=== PATIENT | female | born 1935 | race Caucasian/White ===

== ENCOUNTER → 2018-05-20 11:23 | Outpatient (CLI) | payer MEDICARE, OTHER, SELFPAY ==
[2018-05-20 12:01] LABS: Add Manual Diff / Slide Review NO; Basophils Percent Auto 2.3 % (0-2); Eosinophils Percent Auto 3.4 % (2-4); Hemoglobin 12.5 g/dL (12.0-16.0); Lymphocytes Percent Auto 30.9 % (25-40); Mean Corpuscular HGB Conc 33.7 % (30-36); Mean Corpuscular Volume 88.8 fL (80-100); Monocytes Percent Auto 9.3 % (3-14); Neutrophils Absolute Auto 2700 /uL (3000-5900); Neutrophils Percent Auto 54.1 % (50-75); Platelet Count 159 X10^3/uL (150-400); Red Blood Cell Count 4.17 X10^6/uL (4.0-5.2); Red Cell Distribution Width 14.2 % (11.6-14.8)
[2018-05-20 12:09] LABS: Alanine Aminotransferase 23 IU/L (9-52); Albumin 3.8 g/dL (3.5-5.0); Albumin Globulin Ratio 1.2 (1.0-2.8); Alkaline Phosphatase 58 U/L (38-126); Aspartate Aminotransferase 25 IU/L (14-36); Bilirubin Total 0.4 mg/dL (0.2-1.3); Blood Urea Nitrogen 20 mg/dL (7-17); Calcium 9.8 mg/dL (8.4-10.2); Carbon Dioxide 34 mmol/L (22-32); Chloride 103 mmol/L (98-107); Estimated Glomerular Filt Rate > 60.0 mL/min (>60); Globulin 3.1 g/dL (1.7-4.1); Glucose 80 mg/dL (80-110); HEMOLYSIS < 15 (0-50); Potassium 4.4 mmol/L (3.4-5.1); Sodium 140 mmol/L (137-145); Total Protein 6.9 g/dL (6.3-8.2)
[2018-05-20 12:36] LABS: Digoxin 1.1 ng/mL (0.8-2.0)
[2018-05-20 12:40] LABS: Cancer Antigen 125 7 U/mL (0-35)
== END ==
PROVIDERS: Internal Medicine Cardiovascular Disease; Family Provider Specialist; PCP Family Medicine; Visit Provider Nurse Practitioner Gerontology
DX: C55 Malignant neoplasm of uterus, part unspecified (principal); I47.1 Supraventricular tachycardia
CPT/HCPCS: 36415; 80053; 80162; 85025; 86304

== ENCOUNTER 2018-11-07 14:02 | Emergency (ER) | payer MEDICARE, OTHER, SELFPAY ==
[2018-11-07 14:06] VITALS: BP 121/64; PULSE 50; RESP 20; TEMP 36.4; O2SAT 98
[2018-11-07 14:30] VITALS: BP 103/47; PULSE 49; RESP 16; O2SAT 100
--- NOTE | 2018-11-07 14:39 | DI.RAD.S_ITS ---
PROCEDURE: XR CHEST 1V INDICATIONS: chest pain TECHNIQUE: One view of the chest was acquired. COMPARISON: [facility], , CHEST 1 VIEW, 07/23/2016, 13:15. FINDINGS: Surgical changes and devices: None. Lungs and pleura: No pleural effusions or pneumothorax. Lungs are clear. Mediastinum: Mediastinal contours appear normal. Heart size is normal. Bones and chest wall: No suspicious bony lesions. Overlying soft tissues appear unremarkable. IMPRESSION: 1. No acute cardiopulmonary disease. Dictated by: Maxi Salomon M.D. on 11/07/2018 at 15:52 Approved by: Maxi Salomon M.D. on 11/07/2018 at 15:52
[2018-11-07 15:05] LABS: Add Manual Diff / Slide Review NO; Basophils Percent Auto 0.4 % (0-2); Eosinophils Percent Auto 0.1 % (2-4); Hematocrit 36.2 % (36-46); Hemoglobin 11.9 g/dL (12.0-16.0); Lymphocytes Percent Auto 8.7 % (25-40); Mean Corpuscular HGB Conc 32.9 % (30-36); Mean Corpuscular Hemoglobin 29.3 PG (26-34); Monocytes Percent Auto 5.8 % (3-14); Neutrophils Absolute Auto 13800 /uL (1500-7000); Platelet Count 144 X10^3/uL (150-400); Red Blood Cell Count 4.07 X10^6/uL (4.0-5.2); White Blood Cell Count 16.3 X10^3/uL (4.5-11.0)
[2018-11-07 15:12] LABS: Prothrombin Time 11.3 SECONDS (10.1-12.7)
[2018-11-07 15:14] LABS: PTT Partial Thromboplastin Tim 28 SECONDS (26.4-36.2)
[2018-11-07 15:16] LABS: Alanine Aminotransferase 24 IU/L (9-52); Albumin 3.9 g/dL (3.5-5.0); Albumin Globulin Ratio 1.2 (1.0-2.8); Alkaline Phosphatase 50 U/L (38-126); Aspartate Aminotransferase 25 IU/L (14-36); Bilirubin Total 0.7 mg/dL (0.2-1.3); Blood Urea Nitrogen 23 mg/dL (7-17); Calcium 9.7 mg/dL (8.4-10.2); Carbon Dioxide 29 mmol/L (22-32); Chloride 102 mmol/L (98-107); Creatine Kinase 34 U/L (30-135); Globulin 3.2 g/dL (1.7-4.1); Glucose 85 mg/dL (80-110); HEMOLYSIS < 15 (0-50); Lipase 34 U/L (23-300); Potassium 4.5 mmol/L (3.4-5.1); Sodium 139 mmol/L (137-145); Total Protein 7.1 g/dL (6.3-8.2)
--- NOTE | 2018-11-07 15:26 | ED.CHESTPAIN ---
HPI - Chest Pain General Chief Complaint: Chest Pain Stated Complaint: Periodic shoulder and chest pain Time Seen by Provider: 11/07/18 14:19 Source: patient and family Mode of arrival: ambulatory Limitations: no limitations History of Present Illness HPI narrative: Patient complains of right-sided chest pain radiating to her right shoulder and across her back on both sides in the middle of the night last night. She states that she took some aspirin, after which the back pain subsided, but she continued to have a focused area pain on her right superior anterior chest wall. Patient states she did not really noticed anything made it better or worse. She states the pain was about a 5/10, but ultimately, resolved on its own. Patient states she did try taking 1 of her 's nitroglycerin tablets, but this did not seem to affect the pain. She states she did take her GERD medicine, and this did seem to help. Patient denies any symptoms currently. She states that she has been having palpitations on and off, after her chemical process equipment operator, Dr. trever edgar, decided to cut her digoxin dose in half. Patient states that she has been on digoxin for 40 years and has controlled her tachycardic episodes and palpitations very well. However, she states that Dr. perera well as trying to face her off of digoxin, as it is ?an outdated medicine?. Patient states that she is going to see him in December, and discuss being put back on her previous dose of digoxin, she felt it was working quite well. Patient denies any nausea, shortness of breath, lightheadedness, or diaphoresis with her episode of chest pain. She states she has had her gallbladder removed. No abdominal symptoms. No fevers or cough recently. No other complaints this time. Related Data Home Medications Medication Instructions Recorded Confirmed digoxin [Lanoxin] 0.125 mg OR Q DAY #0 07/23/16 lactulose 10 gm PO Q DAY #0 10/15/16 levothyroxine [Synthroid] 112 mcg PO QAM #0 10/15/16 famotidine [Pepcid] 40 mg HS #0 07/02/17 vitamins A,C,W-ojst-ccfzot 1 PO QDAY #0 09/08/17 [PreserVision AREDS] aspirin [Aspir-81] 05/27/18 atenolol 25 mg PO DAILY 05/27/18 05/27/18 cholecalciferol (vitamin D3) 1,000 unit PO DAILY 05/27/18 05/27/18 [Vitamin D3] docusate calcium 240 mg PO DAILY 05/27/18 05/27/18 simvastatin [Zocor] 20 mg PO QPM 05/27/18 05/27/18 Review of Systems Review of Systems All systems reviewed & are unremarkable except as noted in HPI and below Constitutional Denies chills, Denies fever(s), Denies lethargy and Denies weakness Eyes Denies change in vision, Denies eye discharge, Denies irritation and Denies loss of vision ENT Ears, Nose, Mouth, and Throat: Denies change in voice, Denies neck pain and Denies sore throat Cardiovascular Reports chest pain, Denies irregular heart rhythm, Denies lightheadedness, Denies palpitations, Denies dyspnea, Denies dyspnea on exertion and Denies orthopnea Respiratory Denies cough, Denies dyspnea, Denies dyspnea on exertion and Denies wheezing Gastrointestinal Gastrointestinal: Denies abdominal pain, Denies change in bowel habits, Denies diarrhea, Denies nausea and Denies vomiting Genitourinary Denies hematuria, Denies flank pain, Denies urinary incontinence and Denies urinary urgency Musculoskeletal Reports back pain and Denies neck pain Integumentary/Breasts Denies pruritus, Denies erythema, Denies rash and Denies wounds Neurologic Denies confusion, Denies loss of vision and Denies weakness Psychiatric Denies anxiety, Denies confusion, Denies depression, Denies homicidal ideation and Denies suicidal ideation Endocrine Denies palpitations Hematologic/Lymphatic Denies easy bruising Allergic/Immunologic Denies wheezing PFSH Medical History Uterine carcinosarcoma (Acute) Bilateral inguinal hernia (BIH) (Acute) Incisional hernia (Acute) Anterior epistaxis (Acute) Atypical chest pain (Acute) 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) Surgical History Status post dilation and curettage Status post laparoscopic cholecystectomy History of repair of hiatal hernia Status post vaginal hysterectomy History of third molar tooth extraction Status post appendectomy Social History Smoking Status: Never smoker Exam Initial Vital Signs Initial Vital Signs: Vital Signs Temperature 97.6 F 11/07/18 14:06 Pulse Rate 50 L 11/07/18 14:06 Respiratory Rate 20 11/07/18 14:06 Blood Pressure 121/64 11/07/18 14:06 Pulse Oximetry 98 11/07/18 14:06 Const General: cooperative and well developed Nutritional Appearance: well nourished Orientation: alert, awake, oriented x3 and not confused [facility] Head: normocephalic and atraumatic Ears: external ears normal Nose: external nose normal and No nasal discharge Face and sinus: face symmetric and No dry mucous membranes Mouth: oral mucosae normal and moist mucous membranes Teeth and gingiva: dentition normal Eyes General: appearance normal, both eyes and all related structures Eyelids: eyelids normal Conjunctivae: conjunctivae normal Sclera: sclerae normal Pupils: PERRL EOM: EOM intact bilaterally Neck Neck: normal visual inspection, trachea midline, No lymphadenopathy, No midline deformity and No JVD Lymphatic: No lymphedema Chest Chest: normal inspection of the chest Resp Effort & Inspection: normal respiratory effort, able to speak in complete sentences, no respiratory distress and no use of accessory muscles Auscultation: clear to auscultation bilaterally, no rales, no rhonchi and no wheezes Cardio Rate: regular rate Rhythm: regular rhythm Heart Sounds: no click, no gallops, no murmurs and no rubs Pulses: normal peripheral pulses GI Inspection: non-distended Palpation: soft, no hepatosplenomegaly, No guarding, No pulsatile mass and No tender Auscultation: normal bowel sounds Back/Spine/Pelvis Back: No CVA tenderness Cervical Spine: cervical ROM normal and No pain with cervical ROM Thoracic/Lumbar Spine: thoracic and lumbar spine normal to inspection Skin General: no rashes or lesions noted, No jaundice and No petechiae Neuro General: alert, oriented x3, gait normal and no focal motor deficits Speech: speech normal Extrem General: full ROM, no clubbing, cyanosis or edema, no pedal edema and no calf tenderness Psych Appearance: well kempt Mental Status: mental status grossly normal Attitude: cooperative Thought Content: normal and suicidality Judgment: judgment good Course Course Narrative: Patient was worked up with labs, EKG, and chest x-ray, all of which were unremarkable. I did not find any evidence of a serious or emergent condition causing the patient's pain overnight. Patient was now completely asymptomatic. I have discussed with her that she should plan to follow up with her chemical process equipment operator, but if her symptoms worsen, she should try to get an earlier appointment with chemical process equipment operator in December. We have also discussed the indications for return to the emergency department. Orders Ordered: ED Orders 11/07/18 14:39 XR chest 1V Stat 11/07/18 14:45 Digoxin Routine Lipid Panel Routine 11/07/18 14:55 Complete Blood Count AUTO DIFF Stat Comprehensive Metabolic Panel Stat Lipase Stat Partial Thromboplastin Time Stat Prothrombin Time INR Stat Troponin & CK Cardiac Panel Stat Vital Signs - 8 hr 11/07/18 14:06 11/07/18 14:30 11/07/18 16:00 Temperature 97.6 F Pulse Rate 50 L 49 L 48 L Respiratory Rate 20 16 18 Blood Pressure 121/64 Blood Pressure [Right Arm] 103/47 L 109/44 L Pulse Oximetry 98 100 97 MDM - Chest Pain Medical Records Data Attestation: I reviewed the patient's medical records. Lab Data Attestation: I reviewed the patient's lab results. Result diagrams: 11/07/18 14:55 11/07/18 14:55 Lab Results 11/07/18 11/07/18 11/07/18 Range/Units 14:45 14:45 14:55 WBC 16.3 H (4.5-11.0) X10^3/uL RBC 4.07 (4.0-5.2) X10^6/uL Hgb 11.9 L (12.0-16.0) g/dL Hct 36.2 (36-46) % MCV 89.0 (80-100) fL MCH 29.3 (26-34) PG MCHC 32.9 (30-36) % RDW 14.0 (11.6-14.8) % Plt Count 144 L (150-400) X10^3/uL Neut % (Auto) 85.0 H (50-75) % Lymph % (Auto) 8.7 L (25-40) % Linn % (Auto) 5.8 (3-14) % Eos % (Auto) 0.1 L (2-4) % Baso % (Auto) 0.4 (0-2) % Neut # (Auto) 05587 H (0619-3341) /uL PT (10.1-12.7) SECONDS INR (0.9-1.3) APTT (26.4-36.2) SECONDS Sodium (137-145) mmol/L Potassium (3.4-5.1) mmol/L Chloride (98-107) mmol/L Carbon Dioxide (22-32) mmol/L BUN (7-17) mg/dL Creatinine (0.52-1.04) mg/dL Estimated GFR (>60) mL/min BUN/Creatinine Ratio (6-22) Glucose (80-110) mg/dL Calcium (8.4-10.2) mg/dL Total Bilirubin (0.2-1.3) mg/dL AST (14-36) IU/L ALT (9-52) IU/L Alkaline Phosphatase (38-126) U/L Total Creatine Kinase (30-135) U/L CK-MB (CK-2) CK-MB (CK-2) Rel Index Troponin I (0.01-0.034) ng/mL Total Protein (6.3-8.2) g/dL Albumin (3.5-5.0) g/dL Globulin (1.7-4.1) g/dL Albumin/Globulin Ratio (1.0-2.8) Triglycerides 69 (35-150) mg/dL Cholesterol 153 (140-199) mg/dL LDL Cholesterol, Calc 78 (<100) mg/dL HDL Cholesterol 61 H (40-60) mg/dL Lipase (23-300) U/L Digoxin < 0.4 L (0.8-2.0) ng/mL 11/07/18 11/07/18 Range/Units 14:55 14:55 WBC (4.5-11.0) X10^3/uL RBC (4.0-5.2) X10^6/uL Hgb (12.0-16.0) g/dL Hct (36-46) % MCV (80-100) fL MCH (26-34) PG MCHC (30-36) % RDW (11.6-14.8) % Plt Count (150-400) X10^3/uL Neut % (Auto) (50-75) % Lymph % (Auto) (25-40) % Linn % (Auto) (3-14) % Eos % (Auto) (2-4) % Baso % (Auto) (0-2) % Neut # (Auto) (7000-5772) /uL PT 11.3 (10.1-12.7) SECONDS INR 1.0 (0.9-1.3) APTT 28 (26.4-36.2) SECONDS Sodium 139 (137-145) mmol/L Potassium 4.5 (3.4-5.1) mmol/L Chloride 102 (98-107) mmol/L Carbon Dioxide 29 (22-32) mmol/L BUN 23 H (7-17) mg/dL Creatinine 1.00 (0.52-1.04) mg/dL Estimated GFR 53.0 L (>60) mL/min BUN/Creatinine Ratio 23.0 H (6-22) Glucose 85 (80-110) mg/dL Calcium 9.7 (8.4-10.2) mg/dL Total Bilirubin 0.7 (0.2-1.3) mg/dL AST 25 (14-36) IU/L ALT 24 (9-52) IU/L Alkaline Phosphatase 50 (38-126) U/L Total Creatine Kinase 34 (30-135) U/L CK-MB (CK-2) TNP CK-MB (CK-2) Rel Index TNP Troponin I < 0.012 (0.01-0.034) ng/mL Total Protein 7.1 (6.3-8.2) g/dL Albumin 3.9 (3.5-5.0) g/dL Globulin 3.2 (1.7-4.1) g/dL Albumin/Globulin Ratio 1.2 (1.0-2.8) Triglycerides (35-150) mg/dL Cholesterol (140-199) mg/dL LDL Cholesterol, Calc (<100) mg/dL HDL Cholesterol (40-60) mg/dL Lipase 34 (23-300) U/L Digoxin (0.8-2.0) ng/mL Imaging Data Chest x-ray: Attestation: I personally reviewed and interpreted this imaging study as follows: My impression: Negative Radiologist's impression: PROCEDURE: XR CHEST 1V INDICATIONS: chest pain TECHNIQUE: One view of the chest was acquired. COMPARISON: [facility], , CHEST 1 VIEW, 07/23/2016, 13:15. FINDINGS: Surgical changes and devices: None. Lungs and pleura: No pleural effusions or pneumothorax. Lungs are clear. Mediastinum: Mediastinal contours appear normal. Heart size is normal. Bones and chest wall: No suspicious bony lesions. Overlying soft tissues appear unremarkable. IMPRESSION: 1. No acute cardiopulmonary disease. Dictated by: Maxi Salomon M.D. on 11/07/2018 at 15:52 Approved by: Maxi Salomon M.D. on 11/07/2018 at 15:52 ECG Data Attestation: I personally reviewed and interpreted this ECG as follows: (See below) Interpretation: Twelve lead EKG performed November 07, 2018 at 2:10 p.m., as follows: Regular ventricular rhythm with a rate of 46 beats per minute MI interval 140 millisecond QRS duration 97 millisecond QTC interval [address] depression less than 1 mm in lead 2 and lead V6 In summary, sinus bradycardia; mild ST depression; no STEMI; abnormal EKG as interpreted by ED MD. Discharge Plan Departure Patient Disposition: Home Clinical Impression: Atypical chest pain Discharge Date/Time: 11/07/18 16:25 Interventions: ED Discharge Assessment Last Done: 11/07/18 16:26 Instructions: DI for Chest Pain Activity Restrictions/Additional Instructions: Your labs, x-ray, and EKG all look good--no evidence of an emergent cause of your symptoms. Prescriptions: No Action digoxin [Lanoxin] 125 MCG tablet 0.125 mg OR Q DAY Qty: 0 RF: 0 levothyroxine [Synthroid] 112 MCG tablet 112 mcg PO QAM Qty: 0 RF: 0 lactulose 10 GM/15 ML solution 10 gm PO Q DAY Qty: 0 RF: 0 famotidine [Pepcid] 40 MG tablet 40 mg HS Qty: 0 RF: 0 vitamins A,C,F-efwb-uwiric [PreserVision AREDS] 1 EACH capsule 1 PO QDAY Qty: 0 RF: 0 aspirin [Aspir-81] 81 mg Tablet,Delayed Release (Dr/Ec) RF: 0 atenolol 25 mg Tablet 25 mg PO DAILY RF: 0 simvastatin [Zocor] 20 mg Tablet 20 mg PO QPM RF: 0 cholecalciferol (vitamin D3) [Vitamin D3] 1,000 unit Capsule 1,000 unit PO DAILY RF: 0 docusate calcium 240 mg Capsule 240 mg PO DAILY RF: 0 Referrals: Jose C Pack MD [Primary Care Provider] - Darrick Madera MD [Physician] -
[2018-11-07 15:28] LABS: Troponin I < 0.012 ng/mL (0.01-0.034)
[2018-11-07 15:31] LABS: Cholesterol 153 mg/dL (140-199); HDL Cholesterol 61 mg/dL (40-60); LDL Cholesterol Calculated 78 mg/dL (<100); Triglycerides 69 mg/dL (35-150)
[2018-11-07 15:35] LABS: Digoxin < 0.4 ng/mL (0.8-2.0)
[2018-11-07 16:00] VITALS: BP 109/44; PULSE 48; RESP 18; O2SAT 97
--- NOTE | 2018-11-07 21:24 | ED_ITS ---
HPI - Chest Pain General Chief Complaint: Chest Pain Stated Complaint: Periodic shoulder and chest pain Time Seen by Provider: 11/07/18 14:19 Source: patient and family Mode of arrival: ambulatory Limitations: no limitations History of Present Illness HPI narrative: Patient complains of right-sided chest pain radiating to her right shoulder and across her back on both sides in the middle of the night last night. She states that she took some aspirin, after which the back pain subsided, but she continued to have a focused area pain on her right superior anterior chest wall. Patient states she did not really noticed anything made it better or worse. She states the pain was about a 5/10, but ultimately, resolved on its own. Patient states she did try taking 1 of her 's nitroglycerin tablets, but this did not seem to affect the pain. She states she did take her GERD medicine, and this did seem to help. Patient denies any symptoms currently. She states that she has been having palpitations on and off , after her shrimp peeler, Dr. trever edgar, decided to cut her digoxin dose in half. Patient states that she has been on digoxin for 40 years and has controlled her tachycardic episodes and palpitations very well. However, she states that Dr. perera well as trying to face her off of digoxin, as it is ?an outdated medicine?. Patient states that she is going to see him in December, and discuss being put back on her previous dose of digoxin, she felt it was working quite well. Patient denies any nausea, shortness of breath, lightheadedness, or diaphoresis with her episode of chest pain. She states she has had her gallbladder removed. No abdominal symptoms. No fevers or cough recently. No other complaints this time. Related Data Home Medications Medication Instructions Recorded Confirmed digoxin [Lanoxin] 0.125 mg OR Q DAY #0 07/23/16 lactulose 10 gm PO Q DAY #0 10/15/16 levothyroxine [Synthroid] 112 mcg PO QAM #0 10/15/16 famotidine [Pepcid] 40 mg HS #0 07/02/17 vitamins A,C,C-qtmy-jsrvef 1 PO QDAY #0 09/08/17 [PreserVision AREDS] aspirin [Aspir-81] 05/27/18 atenolol 25 mg PO DAILY 05/27/18 05/27/18 cholecalciferol (vitamin D3) 1,000 unit PO DAILY 05/27/18 05/27/18 [Vitamin D3] docusate calcium 240 mg PO DAILY 05/27/18 05/27/18 simvastatin [Zocor] 20 mg PO QPM 05/27/18 05/27/18 Review of Systems Review of Systems All systems reviewed & are unremarkable except as noted in HPI and below Constitutional Denies chills, Denies fever(s), Denies lethargy and Denies weakness Eyes Denies change in vision, Denies eye discharge, Denies irritation and Denies loss of vision ENT Ears, Nose, Mouth, and Throat: Denies change in voice, Denies neck pain and Denies sore throat Cardiovascular Reports chest pain, Denies irregular heart rhythm, Denies lightheadedness, Denies palpitations, Denies dyspnea, Denies dyspnea on exertion and Denies orthopnea Respiratory Denies cough, Denies dyspnea, Denies dyspnea on exertion and Denies wheezing Gastrointestinal Gastrointestinal: Denies abdominal pain, Denies change in bowel habits, Denies diarrhea, Denies nausea and Denies vomiting Genitourinary Denies hematuria, Denies flank pain, Denies urinary incontinence and Denies urinary urgency Musculoskeletal Reports back pain and Denies neck pain Integumentary/Breasts Denies pruritus, Denies erythema, Denies rash and Denies wounds Neurologic Denies confusion, Denies loss of vision and Denies weakness Psychiatric Denies anxiety, Denies confusion, Denies depression, Denies homicidal ideation and Denies suicidal ideation Endocrine Denies palpitations Hematologic/Lymphatic Denies easy bruising Allergic/Immunologic Denies wheezing PFSH Medical History Uterine carcinosarcoma (Acute) Bilateral inguinal hernia (BIH) (Acute) Incisional hernia (Acute) Anterior epistaxis (Acute) Atypical chest pain (Acute) 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) Surgical History Status post dilation and curettage Status post laparoscopic cholecystectomy History of repair of hiatal hernia Status post vaginal hysterectomy History of third molar tooth extraction Status post appendectomy Social History Smoking Status: Never smoker Exam Initial Vital Signs Initial Vital Signs: Vital Signs Temperature 97.6 F 11/07/18 14:06 Pulse Rate 50 L 11/07/18 14:06 Respiratory Rate 20 11/07/18 14:06 Blood Pressure 121/64 11/07/18 14:06 Pulse Oximetry 98 11/07/18 14:06 Const General: cooperative and well developed Nutritional Appearance: well nourished Orientation: alert, awake, oriented x3 and not confused [facility] Head: normocephalic and atraumatic Ears: external ears normal Nose: external nose normal and No nasal discharge Face and sinus: face symmetric and No dry mucous membranes Mouth: oral mucosae normal and moist mucous membranes Teeth and gingiva: dentition normal Eyes General: appearance normal, both eyes and all related structures Eyelids: eyelids normal Conjunctivae: conjunctivae normal Sclera: sclerae normal Pupils: PERRL EOM: EOM intact bilaterally Neck Neck: normal visual inspection, trachea midline, No lymphadenopathy, No midline deformity and No JVD Lymphatic: No lymphedema Chest Chest: normal inspection of the chest Resp Effort & Inspection: normal respiratory effort, able to speak in complete sentences, no respiratory distress and no use of accessory muscles Auscultation: clear to auscultation bilaterally, no rales, no rhonchi and no wheezes Cardio Rate: regular rate Rhythm: regular rhythm Heart Sounds: no click, no gallops, no murmurs and no rubs Pulses: normal peripheral pulses GI Inspection: non-distended Palpation: soft, no hepatosplenomegaly, No guarding, No pulsatile mass and No tender Auscultation: normal bowel sounds Back/Spine/Pelvis Back: No CVA tenderness Cervical Spine: cervical ROM normal and No pain with cervical ROM Thoracic/Lumbar Spine: thoracic and lumbar spine normal to inspection Skin General: no rashes or lesions noted, No jaundice and No petechiae Neuro General: alert, oriented x3, gait normal and no focal motor deficits Speech: speech normal Extrem General: full ROM, no clubbing, cyanosis or edema, no pedal edema and no calf tenderness Psych Appearance: well kempt Mental Status: mental status grossly normal Attitude: cooperative Thought Content: normal and suicidality Judgment: judgment good Course Course Narrative: Patient was worked up with labs, EKG, and chest x-ray, all of which were unremarkable. I did not find any evidence of a serious or emergent condition causing the patient's pain overnight. Patient was now completely asymptomatic. I have discussed with her that she should plan to follow up with her shrimp peeler, but if her symptoms worsen, she should try to get an earlier appointment with shrimp peeler in December. We have also discussed the indications for return to the emergency department. Orders Ordered: ED Orders 11/07/18 14:39 XR chest 1V Stat 11/07/18 14:45 Digoxin Routine Lipid Panel Routine 11/07/18 14:55 Complete Blood Count AUTO DIFF Stat Comprehensive Metabolic Panel Stat Lipase Stat Partial Thromboplastin Time Stat Prothrombin Time INR Stat Troponin & CK Cardiac Panel Stat Vital Signs - 8 hr 11/07/18 14:06 11/07/18 14:30 11/07/18 16:00 Temperature 97.6 F Pulse Rate 50 L 49 L 48 L Respiratory Rate 20 16 18 Blood Pressure 121/64 Blood Pressure [Right Arm] 103/47 L 109/44 L Pulse Oximetry 98 100 97 MDM - Chest Pain Medical Records Data Attestation: I reviewed the patient's medical records. Lab Data Attestation: I reviewed the patient's lab results. Result diagrams: 11/07/18 14:55 11/07/18 14:55 Lab Results 11/07/18 11/07/18 11/07/18 Range/Units 14:45 14:45 14:55 WBC 16.3 H (4.5-11.0) X10^3/uL RBC 4.07 (4.0-5.2) X10^6/uL Hgb 11.9 L (12.0-16.0) g/dL Hct 36.2 (36-46) % MCV 89.0 (80-100) fL MCH 29.3 (26-34) PG MCHC 32.9 (30-36) % RDW 14.0 (11.6-14.8) % Plt Count 144 L (150-400) X10^3/uL Neut % (Auto) 85.0 H (50-75) % Lymph % (Auto) 8.7 L (25-40) % Mcnairy % (Auto) 5.8 (3-14) % Eos % (Auto) 0.1 L (2-4) % Baso % (Auto) 0.4 (0-2) % Neut # (Auto) 62600 H (7468-9769) /uL PT (10.1-12.7) SECONDS INR (0.9-1.3) APTT (26.4-36.2) SECONDS Sodium (137-145) mmol/L Potassium (3.4-5.1) mmol/L Chloride (98-107) mmol/L Carbon Dioxide (22-32) mmol/L BUN (7-17) mg/dL Creatinine (0.52-1.04) mg/dL Estimated GFR (>60) mL/min BUN/Creatinine Ratio (6-22) Glucose (80-110) mg/dL Calcium (8.4-10.2) mg/dL Total Bilirubin (0.2-1.3) mg/dL AST (14-36) IU/L ALT (9-52) IU/L Alkaline Phosphatase (38-126) U/L Total Creatine Kinase (30-135) U/L CK-MB (CK-2) CK-MB (CK-2) Rel Index Troponin I (0.01-0.034) ng/mL Total Protein (6.3-8.2) g/dL Albumin (3.5-5.0) g/dL Globulin (1.7-4.1) g/dL Albumin/Globulin Ratio (1.0-2.8) Triglycerides 69 (35-150) mg/dL Cholesterol 153 (140-199) mg/dL LDL Cholesterol, Calc 78 (<100) mg/dL HDL Cholesterol 61 H (40-60) mg/dL Lipase (23-300) U/L Digoxin < 0.4 L (0.8-2.0) ng/mL 11/07/18 11/07/18 Range/Units 14:55 14:55 WBC (4.5-11.0) X10^3/uL RBC (4.0-5.2) X10^6/uL Hgb (12.0-16.0) g/dL Hct (36-46) % MCV (80-100) fL MCH (26-34) PG MCHC (30-36) % RDW (11.6-14.8) % Plt Count (150-400) X10^3/uL Neut % (Auto) (50-75) % Lymph % (Auto) (25-40) % Mcnairy % (Auto) (3-14) % Eos % (Auto) (2-4) % Baso % (Auto) (0-2) % Neut # (Auto) (1525-4787) /uL PT 11.3 (10.1-12.7) SECONDS INR 1.0 (0.9-1.3) APTT 28 (26.4-36.2) SECONDS Sodium 139 (137-145) mmol/L Potassium 4.5 (3.4-5.1) mmol/L Chloride 102 (98-107) mmol/L Carbon Dioxide 29 (22-32) mmol/L BUN 23 H (7-17) mg/dL Creatinine 1.00 (0.52-1.04) mg/dL Estimated GFR 53.0 L (>60) mL/min BUN/Creatinine Ratio 23.0 H (6-22) Glucose 85 (80-110) mg/dL Calcium 9.7 (8.4-10.2) mg/dL Total Bilirubin 0.7 (0.2-1.3) mg/dL AST 25 (14-36) IU/L ALT 24 (9-52) IU/L Alkaline Phosphatase 50 (38-126) U/L Total Creatine Kinase 34 (30-135) U/L CK-MB (CK-2) TNP CK-MB (CK-2) Rel Index TNP Troponin I < 0.012 (0.01-0.034) ng/mL Total Protein 7.1 (6.3-8.2) g/dL Albumin 3.9 (3.5-5.0) g/dL Globulin 3.2 (1.7-4.1) g/dL Albumin/Globulin Ratio 1.2 (1.0-2.8) Triglycerides (35-150) mg/dL Cholesterol (140-199) mg/dL LDL Cholesterol, Calc (<100) mg/dL HDL Cholesterol (40-60) mg/dL Lipase 34 (23-300) U/L Digoxin (0.8-2.0) ng/mL Imaging Data Chest x-ray: Attestation: I personally reviewed and interpreted this imaging study as follows: My impression: Negative Radiologist's impression: PROCEDURE: XR CHEST 1V INDICATIONS: chest pain TECHNIQUE: One view of the chest was acquired. COMPARISON: [facility], , CHEST 1 VIEW, 07/23/2016, 13:15. FINDINGS: Surgical changes and devices: None. Lungs and pleura: No pleural effusions or pneumothorax. Lungs are clear. Mediastinum: Mediastinal contours appear normal. Heart size is normal. Bones and chest wall: No suspicious bony lesions. Overlying soft tissues appear unremarkable. IMPRESSION: 1. No acute cardiopulmonary disease. Dictated by: Maxi Salomon M.D. on 11/07/2018 at 15:52 Approved by: Maxi Salomon M.D. on 11/07/2018 at 15:52 ECG Data Attestation: I personally reviewed and interpreted this ECG as follows: (See below) Interpretation: Twelve lead EKG performed November 07, 2018 at 2:10 p.m., as follows: Regular ventricular rhythm with a rate of 46 beats per minute WI interval 140 millisecond QRS duration 97 millisecond QTC interval [address] depression less than 1 mm in lead 2 and lead V6 In summary, sinus bradycardia; mild ST depression; no STEMI; abnormal EKG as interpreted by ED MD. Discharge Plan Departure Patient Disposition: Home Clinical Impression: Atypical chest pain Discharge Date/Time: 11/07/18 16:25 Interventions: ED Discharge Assessment Last Done: 11/07/18 16:26 Instructions: DI for Chest Pain Activity Restrictions/Additional Instructions: Your labs, x-ray, and EKG all look good--no evidence of an emergent cause of your symptoms. Prescriptions: No Action digoxin [Lanoxin] 125 MCG tablet 0.125 mg OR Q DAY Qty: 0 RF: 0 levothyroxine [Synthroid] 112 MCG tablet 112 mcg PO QAM Qty: 0 RF: 0 lactulose 10 GM/15 ML solution 10 gm PO Q DAY Qty: 0 RF: 0 famotidine [Pepcid] 40 MG tablet 40 mg HS Qty: 0 RF: 0 vitamins A,C,K-wvko-ybkptm [PreserVision AREDS] 1 EACH capsule 1 PO QDAY Qty: 0 RF: 0 aspirin [Aspir-81] 81 mg Tablet,Delayed Release (Dr/Ec) RF: 0 atenolol 25 mg Tablet 25 mg PO DAILY RF: 0 simvastatin [Zocor] 20 mg Tablet 20 mg PO QPM RF: 0 cholecalciferol (vitamin D3) [Vitamin D3] 1,000 unit Capsule 1,000 unit PO DAILY RF: 0 docusate calcium 240 mg Capsule 240 mg PO DAILY RF: 0 Referrals: Jose C Pack MD [Primary Care Provider] - Darrick Madera MD [Physician] -
== END 2018-11-07 16:25 | disposition home or self-care (01) ==
PROVIDERS: Internal Medicine Cardiovascular Disease; Emergency Provider Emergency Medicine; PCP Family Medicine
DX: R07.89 Other chest pain (principal)
CPT/HCPCS: 36415; 71045; 80053; 80061; 80162; 82550; 83690; 84484; 85025; 85610; 85730; 93005; 99283; 99285

== ENCOUNTER → 2018-11-10 12:00 | Outpatient (CLI) | payer MEDICARE, OTHER, SELFPAY ==
--- NOTE | 2018-11-10 11:56 | DI.CT.S_ITS ---
PROCEDURE: CT ABDOMEN PELVIS W CON INDICATIONS: surveillance TECHNIQUE: After the administration of oral and intravenous contrast, 5 mm thick sections acquired from the diaphragms to the symphysis. 5 mm thick coronal and sagittal reformats were performed. For radiation dose reduction, the following was used: automated exposure control, adjustment of mA and/or kV according to patient size. COMPARISON: [facility], CT, ABDOMEN/PELVIS WITH CONTRAST, 09/03/2017, 11:38. FINDINGS: Image quality: Excellent. ABDOMEN: Lung bases: Fat-containing right posterior hemidiaphragmatic hernia is present, as before. Lung bases are clear. Heart size is normal. Solid organs: Liver is normal in size and enhancement. Gallbladder is surgically absent. Biliary system is non-dilated. No change in pancreatic ductal dilatation and cysts within the pancreatic tail. Pancreas otherwise enhances normally. Spleen is normal in size and enhancement. No adrenal nodules. Kidneys are normal in size and enhancement, without hydronephrosis. Peritoneum and bowel: Stomach, small bowel, and colon loops are normal in caliber and wall thickness. No free fluid or air. Appendix not seen. No evidence of appendicitis. Nodes and vessels: No retroperitoneal or mesenteric adenopathy. Aorta and inferior vena cava are normal in caliber. Miscellaneous: No ventral hernias. Mild scarring within the anterior abdominal wall. PELVIS: Genitourinary: Bladder wall thickness is normal. Status post hysterectomy. Miscellaneous: No inguinal hernias or adenopathy. Bones: No suspicious bony lesions. Moderate leftward curvature of the lumbar spine is present. No vertebral body compression fractures. IMPRESSION: 1. No evidence of malignancy. 2. No change in pancreatic ductal dilatation and pancreatic tail cysts. Otherwise Dictated by: Marito Cowart M.D. on 11/10/2018 at 13:49 Approved by: Marito Cowart M.D. on 11/10/2018 at 13:52
[2018-11-10 11:57] LABS: Add Manual Diff / Slide Review NO; Basophils Percent Auto 0.8 % (0-2); Eosinophils Percent Auto 3.7 % (2-4); Hematocrit 39.6 % (36-46); Hemoglobin 13.2 g/dL (12.0-16.0); Lymphocytes Percent Auto 31.6 % (25-40); Mean Corpuscular HGB Conc 33.2 % (30-36); Mean Corpuscular Hemoglobin 29.5 PG (26-34); Mean Corpuscular Volume 88.7 fL (80-100); Monocytes Percent Auto 6.1 % (3-14); Neutrophils Absolute Auto 3300 /uL (1500-7000); Neutrophils Percent Auto 57.8 % (50-75); Platelet Count 159 X10^3/uL (150-400); Red Blood Cell Count 4.46 X10^6/uL (4.0-5.2); Red Cell Distribution Width 13.9 % (11.6-14.8); White Blood Cell Count 5.8 X10^3/uL (4.5-11.0)
[2018-11-10 12:12] LABS: Alanine Aminotransferase 27 IU/L (9-52); Albumin 4.1 g/dL (3.5-5.0); Albumin Globulin Ratio 1.2 (1.0-2.8); Alkaline Phosphatase 54 U/L (38-126); Aspartate Aminotransferase 30 IU/L (14-36); BUN Creatinine Ratio 21.3 (6-22); Bilirubin Total 0.4 mg/dL (0.2-1.3); Blood Urea Nitrogen 17 mg/dL (7-17); Calcium 9.4 mg/dL (8.4-10.2); Carbon Dioxide 30 mmol/L (22-32); Chloride 102 mmol/L (98-107); Estimated Glomerular Filt Rate > 60.0 mL/min (>60); Globulin 3.4 g/dL (1.7-4.1); Glucose 80 mg/dL (80-110); HEMOLYSIS < 15 (0-50); Sodium 140 mmol/L (137-145); Total Protein 7.5 g/dL (6.3-8.2)
[2018-11-10 12:43] LABS: Cancer Antigen 125 7 U/mL (0-35)
--- NOTE | 2018-11-11 15:02 | PC.NURSE ---
lab stable, provider visit 11/15
== END ==
PROVIDERS: Family Provider Nurse Practitioner Gerontology; PCP Family Medicine; Visit Provider Nurse Practitioner Gerontology
DX: Z08 Encounter for follow-up examination after completed treatment for malignant neoplasm (principal); Z85.42 Personal history of malignant neoplasm of other parts of uterus; K86.2 Cyst of pancreas; K86.89 Other specified diseases of pancreas; Z90.49 Acquired absence of other specified parts of digestive tract
CPT/HCPCS: 36415; 74177; 80053; 85025; 86304; Q9967

== ENCOUNTER → 2019-01-04 09:58 | Outpatient (CLI) | payer MEDICARE, OTHER, SELFPAY ==
--- NOTE | 2019-01-04 | DI.MG.S_ITS ---
BILATERAL DIGITAL SCREENING MAMMOGRAM 3D/2D WITH CAD: 01/04/2019 CLINICAL: Routine screening. Family history of breast cancer. Comparison is made to exams dated: 12/08/2017 mammogram, 11/18/2016 mammogram, and 11/14/2015 mammogram - [facility]. There are scattered fibroglandular elements in both breasts. Current study was also evaluated with a Computer Aided Detection (CAD) system. No significant masses, calcifications, or other findings are seen in either breast. There has been no significant interval change. IMPRESSION: NEGATIVE There is no mammographic evidence of malignancy. A 1 year screening mammogram is recommended. This exam was interpreted at Station ID: [id number]. NOTE: For mammograms, a report in lay terms will be sent to the patient. Approximately 15% of breast malignancies will not be visualized mammographically. In the management of a palpable breast mass, a negative mammogram must not discourage biopsy of a clinically suspicious lesion. Electronically Signed By: Yan mercedes/portia:01/04/2019 17:45:50 copy to: ADRI WHITE copy to: YELITZA DELGADO letter sent: Normal Exam ACR BI-RADS Category 1: Negative 3341F
== END ==
PROVIDERS: Family Provider Nurse Practitioner Gerontology; PCP Family Medicine; Visit Provider Family Medicine
DX: Z12.31 Encounter for screening mammogram for malignant neoplasm of breast (principal); Z80.3 Family history of malignant neoplasm of breast
CPT/HCPCS: 77063; 77067

== ENCOUNTER → 2019-05-09 12:02 | Outpatient (CLI) | payer MEDICARE, OTHER, SELFPAY ==
--- NOTE | 2019-05-09 | DI.US.S_ITS ---
PROCEDURE: US PERIPH VENOUS LOW EXTREM LT INDICATIONS: LEFT LEG PAIN TECHNIQUE: Real-time imaging, as well as color and pulse Doppler interrogation, were performed of the lower extremity deep veins from the inguinal ligament to the popliteal fossa. COMPARISON: None. FINDINGS: The common femoral, femoral and popliteal veins are normally compressible, and free of intraluminal thrombus. Color and pulse Doppler demonstrate normal phasic intraluminal flow. There is normal augmentation response to distal compression maneuver. IMPRESSION: Negative for deep venous thrombosis. Dictated by: Duane Clark M.D. on 05/09/2019 at 12:13 Approved by: Duane Clark M.D. on 05/09/2019 at 12:13
== END ==
PROVIDERS: Family Provider Nurse Practitioner Gerontology; PCP Student in an Organized Health Care Education/Training Program; Visit Provider Student in an Organized Health Care Education/Training Program
DX: M79.605 Pain in left leg (principal)
CPT/HCPCS: 93971

== ENCOUNTER → 2019-11-21 10:08 | Outpatient (CLI) | payer MEDICARE, OTHER, SELFPAY ==
[2019-11-21 10:42] LABS: Add Manual Diff / Slide Review NO; Basophils Absolute Auto 100 /uL (0-100); Basophils Percent Auto 1.1 % (0-2); Eosinophils Absolute Auto 200 /uL (0-450); Eosinophils Percent Auto 4.1 % (2-4); Hematocrit 38.9 % (36-46); Hemoglobin 13.1 g/dL (12.0-16.0); Lymphocytes Absolute Auto 2000 /uL (1100-4500); Lymphocytes Percent Auto 33.5 % (25-40); Mean Corpuscular HGB Conc 33.6 % (30-36); Mean Corpuscular Hemoglobin 30.1 PG (26-34); Mean Corpuscular Volume 89.5 fL (80-100); Monocytes Absolute Auto 500 /uL (0-900); Neutrophils Absolute Auto 3100 /uL (1500-7000); Neutrophils Percent Auto 52.3 % (50-75); Platelet Count 149 X10^3/uL (150-400); Red Blood Cell Count 4.35 X10^6/uL (4.0-5.2); Red Cell Distribution Width 13.7 % (11.6-14.8); White Blood Cell Count 5.9 X10^3/uL (4.5-11.0)
[2019-11-21 10:57] LABS: Alanine Aminotransferase 14 IU/L (<35); Albumin Globulin Ratio 1.2 (1.0-2.8); Alkaline Phosphatase 60 U/L (38-126); Aspartate Aminotransferase 30 IU/L (14-36); BUN Creatinine Ratio 26.3 (6-22); Bilirubin Total 0.5 mg/dL (0.2-1.3); Blood Urea Nitrogen 21 mg/dL (7-17); Carbon Dioxide 31 mmol/L (22-32); Chloride 105 mmol/L (98-107); Estimated Glomerular Filt Rate > 60.0 mL/min (>60); Globulin 3.3 g/dL (1.7-4.1); Glucose 80 mg/dL (80-110); HEMOLYSIS < 15 (0-50); Potassium 4.3 mmol/L (3.4-5.1); Sodium 140 mmol/L (137-145); Total Protein 7.3 g/dL (6.3-8.2)
[2019-11-21 11:26] LABS: Cancer Antigen 125 < 6 U/mL (0-35)
== END ==
PROVIDERS: PCP Student in an Organized Health Care Education/Training Program; Visit Provider Internal Medicine Hematology & Oncology
DX: C55 Malignant neoplasm of uterus, part unspecified (principal)
CPT/HCPCS: 36415; 80053; 85025; 86304

== ENCOUNTER → 2020-01-06 10:49 | Outpatient (CLI) | payer MEDICARE, OTHER, SELFPAY ==
--- NOTE | 2020-01-06 | DI.MG.S_ITS ---
BILATERAL DIGITAL SCREENING MAMMOGRAM 3D/2D WITH CAD: 01/06/2020 CLINICAL: Routine screening. Family history of breast cancer. Comparison is made to exams dated: 01/04/2019 mammogram, 12/08/2017 mammogram, and 11/18/2016 mammogram - [facility]. There are scattered fibroglandular elements in both breasts. Current study was also evaluated with a Computer Aided Detection (CAD) system. No significant masses, calcifications, or other findings are seen in either breast. There has been no significant interval change. IMPRESSION: NEGATIVE There is no mammographic evidence of malignancy. A 1 year screening mammogram is recommended. This exam was interpreted at Station ID: [id number]. NOTE: For mammograms, a report in lay terms will be sent to the patient. Approximately 15% of breast malignancies will not be visualized mammographically. In the management of a palpable breast mass, a negative mammogram must not discourage biopsy of a clinically suspicious lesion. Electronically Signed By: Josefina vázquez/portia:01/06/2020 12:51:02 letter sent: Normal Exam ACR BI-RADS Category 1: Negative 3341F
== END ==
PROVIDERS: PCP Nurse Practitioner; Referring Provider Nurse Practitioner; Visit Provider Nurse Practitioner
DX: Z12.31 Encounter for screening mammogram for malignant neoplasm of breast (principal); Z80.3 Family history of malignant neoplasm of breast
CPT/HCPCS: 77063; 77067

== ENCOUNTER → 2020-02-17 09:56 | Outpatient (CLI) | payer MEDICARE, OTHER, SELFPAY ==
[2020-02-17 12:51] LABS: Digoxin 0.9 ng/mL (0.8-2.0)
== END ==
PROVIDERS: PCP Nurse Practitioner; Referring Provider Internal Medicine Cardiovascular Disease; Visit Provider Internal Medicine Cardiovascular Disease
DX: I47.1 Supraventricular tachycardia (principal)
CPT/HCPCS: 36415; 80162

== ENCOUNTER → 2020-04-04 11:54 | Outpatient (CLI) | payer MEDICARE, OTHER, SELFPAY ==
[2020-04-04 13:47] LABS: Free T3, Triiodothyronine Free 3.02 pg/mL (2.77-5.27)
[2020-04-04 13:48] LABS: Free T4, Direct Thyroxine 1.52 ng/dL (0.78-2.19)
[2020-04-04 14:01] LABS: Thyroid Stimulating Hormone < 0.02 uIU/mL (0.47-4.68)
== END ==
PROVIDERS: PCP Nurse Practitioner; Referring Provider Nurse Practitioner; Visit Provider Nurse Practitioner
DX: E03.9 Hypothyroidism, unspecified (principal); R53.83 Other fatigue; Z79.899 Other long term (current) drug therapy
CPT/HCPCS: 36415; 84439; 84443; 84481

== ENCOUNTER → 2020-06-21 11:36 | Outpatient (CLI) | payer MEDICARE, OTHER, SELFPAY ==
[2020-06-21 13:27] LABS: Digoxin 0.7 ng/mL (0.8-2.0)
== END ==
PROVIDERS: PCP Nurse Practitioner; Referring Provider Internal Medicine Cardiovascular Disease; Visit Provider Internal Medicine Cardiovascular Disease
DX: I47.1 Supraventricular tachycardia (principal)
CPT/HCPCS: 36415; 80162

== ENCOUNTER → 2020-09-26 09:29 | Outpatient (CLI) | payer MEDICARE, OTHER, SELFPAY ==
[2020-09-26 11:28] LABS: BUN Creatinine Ratio 23.9 (6-22); Blood Urea Nitrogen 21 mg/dL (7-17); Carbon Dioxide 31 mmol/L (22-32); Chloride 105 mmol/L (98-107); Estimated Glomerular Filt Rate > 60.0 mL/min (>60); Glucose 84 mg/dL (80-110); HEMOLYSIS < 15 (0-50); Potassium 4.1 mmol/L (3.4-5.1); Sodium 137 mmol/L (137-145)
[2020-09-26 11:30] LABS: Calcium 9.6 mg/dL (8.4-10.2)
[2020-09-26 11:34] LABS: Digoxin < 0.4 ng/mL (0.8-2.0)
[2020-09-26 11:58] LABS: Thyroid Stimulating Hormone 0.039 uIU/mL (0.47-4.68)
== END ==
PROVIDERS: PCP Nurse Practitioner; Referring Provider Internal Medicine Cardiovascular Disease; Visit Provider Internal Medicine Cardiovascular Disease
DX: I47.1 Supraventricular tachycardia (principal); E03.9 Hypothyroidism, unspecified; I10 Essential (primary) hypertension; R53.83 Other fatigue; Z79.899 Other long term (current) drug therapy
CPT/HCPCS: 36415; 80048; 80162; 84443

== ENCOUNTER → 2021-01-09 11:39 | Outpatient (CLI) | payer MEDICARE, OTHER, SELFPAY ==
--- NOTE | 2021-01-09 11:40 | DI.MG.S_ITS ---
BILATERAL DIGITAL SCREENING MAMMOGRAM 3D/2D WITH CAD: 01/09/2021 CLINICAL: Routine screening. Family history of breast cancer. Comparison is made to exams dated: 01/06/2020 mammogram, 01/04/2019 mammogram, and 12/08/2017 mammogram - [facility]. There are scattered fibroglandular elements in both breasts. Current study was also evaluated with a Computer Aided Detection (CAD) system. No significant masses, calcifications, or other findings are seen in either breast. There has been no significant interval change. IMPRESSION: NEGATIVE There is no mammographic evidence of malignancy. A 1 year screening mammogram is recommended. This exam was interpreted at Station ID: [id number]. NOTE: For mammograms, a report in lay terms will be sent to the patient. Approximately 15% of breast malignancies will not be visualized mammographically. In the management of a palpable breast mass, a negative mammogram must not discourage biopsy of a clinically suspicious lesion. Electronically Signed By: Tommie Mccarthy M.D., jr/portia:01/09/2021 12:58:05 copy to: JESUSITA DE SANTIAGO letter sent: Normal Exam ACR BI-RADS Category 1: Negative 3341F
== END ==
PROVIDERS: PCP Nurse Practitioner; Referring Provider Internal Medicine Hematology & Oncology; Visit Provider Internal Medicine Hematology & Oncology
DX: Z12.31 Encounter for screening mammogram for malignant neoplasm of breast (principal); Z80.3 Family history of malignant neoplasm of breast
CPT/HCPCS: 77063; 77067

== ENCOUNTER → 2021-03-26 10:04 | Outpatient (CLI) | payer MEDICARE, OTHER, SELFPAY ==
[2021-03-26 11:44] LABS: BUN Creatinine Ratio 19.1 (6-22); Blood Urea Nitrogen 18 mg/dL (7-17); Calcium 9.5 mg/dL (8.4-10.2); Carbon Dioxide 31 mmol/L (22-32); Chloride 103 mmol/L (98-107); Estimated Glomerular Filt Rate 56.6 mL/min (>60); Glucose 81 mg/dL (80-110); HEMOLYSIS < 15 (0-50); Potassium 3.8 mmol/L (3.4-5.1); Sodium 139 mmol/L (137-145)
[2021-03-26 11:57] LABS: Digoxin 0.6 ng/mL (0.8-2.0)
[2021-03-26 12:10] LABS: Thyroid Stimulating Hormone 2.29 uIU/mL (0.47-4.68)
== END ==
PROVIDERS: Internal Medicine Cardiovascular Disease; PCP Nurse Practitioner; Referring Provider Nurse Practitioner; Visit Provider Nurse Practitioner
DX: I47.1 Supraventricular tachycardia (principal); I10 Essential (primary) hypertension; E03.9 Hypothyroidism, unspecified; Z79.899 Other long term (current) drug therapy
CPT/HCPCS: 36415; 80048; 80162; 84443

== ENCOUNTER → 2021-05-01 09:08 | Outpatient (CLI) | payer MEDICARE, OTHER, SELFPAY ==
[2021-05-01 10:34] LABS: Alanine Aminotransferase 14 IU/L (<35); Albumin 3.9 g/dL (3.5-5.0); Albumin Globulin Ratio 1.3 (1.0-2.8); Alkaline Phosphatase 50 U/L (38-126); Aspartate Aminotransferase 36 IU/L (14-36); BUN Creatinine Ratio 21.2 (6-22); Bilirubin Total 0.5 mg/dL (0.2-1.3); Blood Urea Nitrogen 18 mg/dL (7-17); Calcium 9.9 mg/dL (8.4-10.2); Carbon Dioxide 29 mmol/L (22-32); Chloride 106 mmol/L (98-107); Cholesterol 190 mg/dL (140-199); Estimated Glomerular Filt Rate > 60.0 mL/min (>60); Globulin 3.1 g/dL (1.7-4.1); Glucose 101 mg/dL (80-110); HDL Cholesterol 67 mg/dL (40-60); HEMOLYSIS < 15 (0-50); LDL Cholesterol Calculated 104 mg/dL (<100); Sodium 138 mmol/L (137-145); Triglycerides 97 mg/dL (35-150)
[2021-05-01 10:52] LABS: Digoxin 0.6 ng/mL (0.8-2.0)
== END ==
PROVIDERS: PCP Nurse Practitioner; Referring Provider Internal Medicine Cardiovascular Disease; Visit Provider Internal Medicine Cardiovascular Disease
DX: I47.1 Supraventricular tachycardia (principal); Z79.899 Other long term (current) drug therapy
CPT/HCPCS: 36415; 80053; 80061; 80162

== ENCOUNTER 2021-07-03 15:48 | Emergency (ER) | payer MEDICARE, OTHER, SELFPAY ==
[2021-07-03 16:04] VITALS: BP 185/84; PULSE 51; RESP 18; TEMP 36.6; O2SAT 98
--- NOTE | 2021-07-03 16:10 | DI.CT.S_ITS ---
PROCEDURE: CT HEAD/BRAIN WO CON INDICATIONS: headache TECHNIQUE: Noncontrast 4.5 mm thick angled axial sections acquired from the foramen magnum to the vertex, with coronal and sagittal reformats. For radiation dose reduction, the following was used: automated exposure control, adjustment of mA and/or kV according to patient size. COMPARISON: None. FINDINGS: Image quality: Excellent. CSF spaces: Basal cisterns are patent. No extra-axial fluid collections. The ventricles are symmetric in size and shape. Brain: No intracranial bleeds or masses. There is cerebral volume loss for age, with resultant ventricular and sulcal prominence. There are periventricular and deep white matter chronic small vessel ischemic changes. There is intracranial internal carotid artery and vertebral artery atherosclerosis. Skull and face: Calvarium and visualized facial bones appear intact, without suspicious lesions. Sinuses: Visualized sinuses and mastoids are clear. IMPRESSION: No acute intracranial disease process. Dictated by: Sakshi Morataya MD, PhD on 07/03/2021 at 16:21 Approved by: Sakshi Morataya MD, PhD on 07/03/2021 at 16:23
[2021-07-03 18:54] VITALS: BP 176/74; PULSE 72; RESP 16; O2SAT 96
--- NOTE | 2021-07-03 19:19 | ED.HA ---
HPI - Headache General Chief Complaint: Headache Stated Complaint: pain in head not going away Time Seen by Provider: 07/03/21 18:40 Mode of arrival: Ambulatory History of Present Illness HPI Narrative: 86-year-old female nonsmoker with history of hypertension presents with her in the chief complaint of brief episodes of sharp and stabbing right-sided headache since yesterday. She denies any provocation or palliation. She denies associated symptoms such as blurred vision, trouble with speech nor numbness, tingling or weakness. She has no chest pain or shortness of breath. She denies any dietary or medication change. She states that she has a very brief episode of sharp pain in the right lower part of her head that lasts only a second or 2 and then goes away for a few minutes until it starts again. Related Data Home Medications Medication Instructions Recorded Confirmed aspirin 81 mg tablet,delayed 81 mg PO DAILY tab 04/04/20 07/10/20 release (Aspir-) sennosides 8.6 mg tablet (senna) See Rx Instructions PO BEDTIME tab 04/04/20 07/10/20 bisacodyl 5 mg tablet,delayed 5 mg PO BID tab 05/07/21 05/07/21 release calcium citrate 500mg/mag/zinc 2 tab PO .QD 05/07/21 docusate sodium 100 mg capsule 100 mg PO BID 05/07/21 05/07/21 (Dulcolax Stool Softener (docusate)) guaifenesin 600 mg tablet, 600 mg PO BID 05/07/21 05/07/21 extended release 12 hr (Mucinex) guaifenesin 600 mg tablet, 600 mg PO BID 05/07/21 05/07/21 extended release 12 hr (Mucinex) levothyroxine 75 mcg tablet 75 mcg PO .COMPLEX tab 05/07/21 melatonin 10 mg capsule 10 mg PO BEDTIME PRN 05/07/21 05/07/21 [id number] no.183 5 cap PO 05/07/21 05/07/21 mg-20 mg-460 mg capsule vit C 250 mg-vit E 90 mg-zinc 40 1 tab PO BID 05/07/21 05/07/21 mg-copper 1 [id number] capsule (PreserVision AREDS-2) Previous Rx's Medication Instructions Recorded acetaminophen 500 mg capsule 1,000 mg PO Q6H PRN #180 cap 05/07/21 atenolol 25 mg tablet 12.5 mg PO DAILY #90 tab 05/07/21 cetirizine 10 mg tablet (Zyrtec) 10 mg PO DAILY PRN #90 tab 05/07/21 digoxin 125 mcg (0.125 mg) tablet 125 mcg PO Q OTHER DAY #90 tab 05/07/21 (Lanoxin) famotidine 20 mg tablet (Pepcid) 20 mg PO BEDTIME #90 tab 05/07/21 guaifenesin 1,200 mg tablet, 1,200 mg PO BID #180 tab 05/07/21 extended release 12 hr lactulose 10 gram/15 mL oral 15 ml PO Q DAY #473 ml 05/07/21 solution levothyroxine 50 mcg tablet 50 mcg PO .COMPLEX #42 tab 05/07/21 levothyroxine 75 mcg tablet 75 mcg PO DAILY #90 tab 05/07/21 simvastatin 20 mg tablet (Zocor) 20 mg PO QPM #90 tab 05/07/21 Allergies Allergy/AdvReac Type Severity Reaction Status Date / Time No Known Drug Allergies Allergy Unverified 07/10/20 10:33 Review of Systems Review of Systems Narrative: GENERAL: Denies chills, fatigue, malaise, fever, sweats. HEENT: Denies sinus pain, ear pain, sore throat, difficulty swallowing, dizziness. RESPIRATORY: Denies dyspnea, cough, wheezing, hemoptysis, sputum. CARDIOVASCULAR: Denies chest pain, palpitations, orthopnea, edema, GASTROINTESTINAL: Denies nausea, vomiting, abdominal pain, diarrhea, constipation, melena. : Denies dysuria, frequency, incontinence, hematuria, urinary retention. MUSCULOSKELETAL: denies weakness, joint pain, or bony pain SKIN: Denies rash, skin lesions, or other NEUROLOGIC: See HPI PSYCHIATRIC: No concerning psychosocial issues. 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 Well-developed patient, in mild distress. GCS 15 HEAD: Atraumatic. Normocephalic. EYES: Pupils equal round and reactive. Extraocular motions intact. No scleral icterus. No injection or drainage. ENT: Nose without bleeding, purulent drainage. Throat without erythema, tonsillar hypertrophy or exudate. Airway patent. NECK: Trachea midline. Non tender CARDIOVASCULAR: Regular rate and rhythm without murmurs, gallops, or rubs. RESPIRATORY: Clear to auscultation. Breath sounds equal bilaterally. No wheezes, rales, or rhonchi. GASTROINTESTINAL: Abdomen soft, non-tender, nondistended. EXTREMITIES: No edema or joint tenderness. BACK: Nontender without deformity or crepitance. No flank tenderness. NEURO: AOx3. SKIN: No rash or erythema of visible areas NIH Stroke Scale 1a. LOC: Patient is alert and keenly responsive (0) 1b. LOC Questions: Patient answers both LOC questions accurately (0) 1c. LOC Commands: Patient performs both tasks correctly (0) 2. Best Gaze: Normal (0) 3. Visual: No visual loss (0) 4. Facial palsy: Normal symmetrical movements (0) 5. Motor arm: No drift (0) 6. Motor leg: No drift (0) 7. Limb ataxia: Absent (0) 8. Sensory: Normal (0) 9. Best language: No aphasia; normal (0) 10. Dysarthria: Normal (0) 11. Extinction and inattention: No abnormality (0) NIHSS: 0 Initial Vital Signs Initial Vital Signs: Vital Signs Temperature 97.8 F 07/03/21 16:04 Pulse Rate 51 L 07/03/21 16:04 Respiratory Rate 18 07/03/21 16:04 Blood Pressure 185/84 H 07/03/21 16:04 Pulse Oximetry 98 07/03/21 16:04 Course Orders Ordered: ED Orders 07/03/21 20:10 Basic Metabolic Panel Stat Complete Blood Count AUTO DIFF Stat Discontinued Medications Acetaminophen (Acetaminophen 325 Mg Tablet) 650 mg PO NOW ONE Stop: 07/03/21 19:54 Last Admin: 07/03/21 20:03 Dose: 650 mg Documented by: OUMAR Atenolol (Atenolol 25 Mg Tablet) 25 mg PO NOW ONE Stop: 07/03/21 19:54 Last Admin: 07/03/21 20:22 Dose: 25 mg Documented by: OUMAR Sodium Chloride (Normal Saline 0.9%) 1,000 mls @ 1,000 mls/hr IV BOLUS ONE Stop: 07/03/21 20:52 Last Admin: 07/03/21 21:03 Dose: Not Given Documented by: MONTSERRAT Reevaluation(s) Reevaluation #1: Patient reports a complete resolution of symptoms with above-stated therapies. She is requesting discharge home. Vital Signs Vital signs: Vital Signs - 8 hr 07/03/21 20:46 Pulse Rate 46 L Respiratory Rate 20 Blood Pressure 177/85 H Pulse Oximetry 97 MDM - Headache Lab Data Result diagrams: 07/03/21 20:10 07/03/21 20:10 Labs: Lab Results 07/03/21 07/03/21 Range/Units 20:10 20:10 WBC 5.2 (4.5-11.0) X10^3/uL RBC 4.25 (4.0-5.2) X10^6/uL Hgb 12.7 (12.0-16.0) g/dL Hct 38.2 (36-46) % MCV 89.9 (80-100) fL MCH 29.8 (26-34) PG MCHC 33.2 (30-36) % RDW 14.2 (11.6-14.8) % Plt Count 136 L (150-400) X10^3/uL Neut % (Auto) 60.0 (50-75) % Lymph % (Auto) 28.2 (25-40) % Warrick % (Auto) 8.9 (3-14) % Eos % (Auto) 1.8 L (2-4) % Baso % (Auto) 1.1 (0-2) % Neut # (Auto) 3100 (1276-0050) /uL Lymph # (Auto) 1500 (0340-5178) /uL Warrick # (Auto) 500 (0-900) /uL Eos # (Auto) 100 (0-450) /uL Baso # (Auto) 100 (0-100) /uL Sodium 138 (137-145) mmol/L Potassium 3.9 (3.4-5.1) mmol/L Chloride 104 (98-107) mmol/L Carbon Dioxide 31 (22-32) mmol/L BUN 20 H (7-17) mg/dL Creatinine 0.82 (0.52-1.04) mg/dL Estimated GFR > 60.0 (>60) mL/min BUN/Creatinine Ratio 24.4 H (6-22) Glucose 83 (80-110) mg/dL Calcium 9.7 (8.4-10.2) mg/dL Point of Care Testing Glucose POC [address] scan - head: Radiologist's Impression: Launch?[address] [address] [address] Scan Report Signed Patient: Shannon Myers I MR#: [id number] : 1935 Acct:[id number] Age/Sex: 86 / F Date of Service: 07/03/21 Loc: ED Accession Number: [id number] ?? Procedure: CT head/brain wo con Ordering Provider: Khushbu Stein D.O. PROCEDURE:? CT HEAD/BRAIN WO CON ? INDICATIONS:? headache ? TECHNIQUE:? Noncontrast 4.5 mm thick angled axial sections acquired from the foramen magnum to the vertex, with coronal and sagittal reformats.? For radiation dose reduction, the following was used:? automated exposure control, adjustment of mA and/or kV according to patient size.? ? COMPARISON:? None. ? FINDINGS:? Image quality:? Excellent.? ? CSF spaces:? Basal cisterns are patent.? No extra-axial fluid collections.? The ventricles are symmetric in size and shape.? ? Brain:? No intracranial bleeds or masses.? There is cerebral volume loss for age, with resultant ventricular and sulcal prominence.? There are periventricular and deep white matter chronic small vessel ischemic changes.? There is intracranial internal carotid artery and vertebral artery atherosclerosis.? ? Skull and face:? Calvarium and visualized facial bones appear intact, without suspicious lesions.? ? Sinuses:? Visualized sinuses and mastoids are clear.? ? IMPRESSION:? No acute intracranial disease process. ? ? Dictated by: Sakshi Morataya MD, PhD on 07/03/2021 at 16:21 ? ? Approved by: Sakshi Morataya MD, PhD on 07/03/2021 at 16:23 ? MDM Narrative Medical decision making narrative: Headache considerations include, but not limited to: Subarachnoid hemorrhage, but unlikely as patient denies sudden onset of pain, not worst of life, or neck pain Meningitis considered, but thought unlikely given lack of Brudzinski's, Kernig's sign, altered mental status or fever Giant cell arteritis considered, but thought unlikely given lack of unilateral findings, pain in gnosticism, vision change Other serious diagnoses considered unlikely given lack of red flag findings such as sudden onset, increasing frequency, immunocompromise, systemic signs (fever, chills, stiff neck, or rash), focal neurologic findings, trauma, blood thinners, etc. Discharge Plan Departure Patient Disposition: Home Clinical Impression: Headache Qualifiers: Headache type: unspecified Headache chronicity pattern: unspecified pattern Intractability: not intractable Qualified Code(s): R51.9 - Headache, unspecified Instructions: DI for Headache Activity Restrictions/Additional Instructions: *You have been diagnosed with [headache, resolved, your physical exam, story and CT scan are very reassuring. *What to do: *Please continue to take your regular medications as directed. [ ] New medication prescriptions sent to your pharmacy: [ ] [ ] New medication written as a paper prescription [ x] No new medications given *Please follow up with your primary care provider in 2-3 days, call for an appointment. Let them know you were seen in the Emergency Department and that we ask that you be seen in follow up. We will electronically transmit a record of today's note if your PCP is in our system *If you do not have a primary care provider please contact the [facility] Resource line at [phone]. They will ask some questions about your medical history and help get you set up with a doctor in the community. *Return to Emergency Department if you should have any new, worsening or concerning symptoms, such as [fever greater than 101 F, shaking chills, worsening pain, persistent vomiting or other bothersome symptoms] Prescriptions: No Action calcium citrate 500mg/mag/zinc 2 tab PO .QD RF: 0 guaifenesin [Mucinex] 600 mg tablet extended release 12hr 600 mg PO BID RF: 0 PreserVision AREDS-2 250-90-40-1 mg capsule 1 tab PO BID RF: 0 docusate sodium [Dulcolax Stool Softener (dss)] 100 mg capsule 100 mg PO BID RF: 0 bisacodyl 5 mg tablet,delayed release (DR/EC) 5 mg PO BID RF: 0 levothyroxine 75 mcg tablet 75 mcg PO .COMPLEX RF: 0 melatonin 10 mg capsule 10 mg PO BEDTIME PRNRF: 0 levothyroxine 75 mcg tablet 75 mcg PO DAILY Qty: 90 RF: 3 levothyroxine 50 mcg tablet 50 mcg PO .COMPLEX Qty: 42 RF: 3 atenolol 25 mg tablet 12.5 mg PO DAILY Qty: 90 RF: 3 digoxin [Lanoxin] 125 mcg (0.125 mg) tablet 125 mcg PO Q OTHER DAY Qty: 90 RF: 3 simvastatin [Zocor] 20 mg tablet 20 mg PO QPM Qty: 90 RF: 3 lactulose 10 gram/15 mL solution 15 ml PO Q DAY Qty: 473 RF: 3 [id number]-[id number]-rafxkh no.183 5-20-460 mg capsule PO RF: 0 guaifenesin [Mucinex] 600 mg tablet extended release 12hr 600 mg PO BID RF: 0 famotidine [Pepcid] 20 mg tablet 20 mg PO BEDTIME Qty: 90 RF: 3 cetirizine [Zyrtec] 10 mg tablet 10 mg PO DAILY PRN (Reason: allergy symptoms) Qty: 90 RF: 3 acetaminophen 500 mg capsule 1,000 mg PO Q6H PRN (Reason: sleep) Qty: 180 RF: 3 guaifenesin 1,200 mg tablet extended release 12hr 1,200 mg PO BID Qty: 180 RF: 3 sennosides [senna] 8.6 mg tablet See Rx Instructions PO BEDTIME RF: 0 aspirin [Aspir-81] 81 mg tablet,delayed release (DR/EC) 81 mg PO DAILY RF: 0 Referrals: Erlinda Kulkarni ARNP [Primary Care Provider] -
[2021-07-03 19:51] VITALS: BP 185/86; PULSE 46; O2SAT 100
[2021-07-03] MEDS: ACETAMINOPHEN 325 MG TABLET 650 MG PO (20:03)
[2021-07-03 20:21] LABS: Basophils Percent Auto 1.1 % (0-2); Eosinophils Percent Auto 1.8 % (2-4); Hematocrit 38.2 % (36-46); Hemoglobin 12.7 g/dL (12.0-16.0); Lymphocytes Percent Auto 28.2 % (25-40); Mean Corpuscular HGB Conc 33.2 % (30-36); Mean Corpuscular Hemoglobin 29.8 PG (26-34); Mean Corpuscular Volume 89.9 fL (80-100); Monocytes Percent Auto 8.9 % (3-14); Platelet Count 136 X10^3/uL (150-400); Red Blood Cell Count 4.25 X10^6/uL (4.0-5.2); Red Cell Distribution Width 14.2 % (11.6-14.8); White Blood Cell Count 5.2 X10^3/uL (4.5-11.0)
[2021-07-03 20:22] LABS: Add Manual Diff / Slide Review NO; Basophils Absolute Auto 100 /uL (0-100); Eosinophils Absolute Auto 100 /uL (0-450); Lymphocytes Absolute Auto 1500 /uL (1100-4500); Monocytes Absolute Auto 500 /uL (0-900); Neutrophils Absolute Auto 3100 /uL (1500-7000)
[2021-07-03] MEDS: atenoloL 25 MG TABLET PO (20:22)
[2021-07-03 20:39] LABS: BUN Creatinine Ratio 24.4 (6-22); Blood Urea Nitrogen 20 mg/dL (7-17); Calcium 9.7 mg/dL (8.4-10.2); Carbon Dioxide 31 mmol/L (22-32); Chloride 104 mmol/L (98-107); Estimated Glomerular Filt Rate > 60.0 mL/min (>60); Glucose 83 mg/dL (80-110); HEMOLYSIS < 15 (0-50); Potassium 3.9 mmol/L (3.4-5.1); Sodium 138 mmol/L (137-145)
[2021-07-03 20:46] VITALS: BP 177/85; PULSE 46; RESP 20; O2SAT 97
== END 2021-07-03 21:06 | disposition home or self-care (01) ==
PROVIDERS: Emergency Provider Emergency Medicine; PCP Nurse Practitioner
DX: R51.9 Headache, unspecified (principal)
CPT/HCPCS: 36415; 70450; 80048; 82962; 85025; 99284

== ENCOUNTER → 2021-08-20 11:56 | Outpatient (CLI) | payer MEDICARE, OTHER, SELFPAY ==
[2021-08-20 13:35] LABS: Thyroid Stimulating Hormone 2.38 uIU/mL (0.47-4.68)
== END ==
PROVIDERS: PCP Nurse Practitioner; Referring Provider Nurse Practitioner; Visit Provider Nurse Practitioner
DX: E03.9 Hypothyroidism, unspecified (principal); Z79.899 Other long term (current) drug therapy
CPT/HCPCS: 36415; 84443

== ENCOUNTER → 2021-11-12 12:28 | Outpatient (CLI) | payer MEDICARE, OTHER, SELFPAY ==
[2021-11-12 13:19] LABS: Add Manual Diff / Slide Review NO; Basophils Absolute Auto 100 /uL (0-100); Basophils Percent Auto 1.3 % (0-2); Eosinophils Absolute Auto 100 /uL (0-450); Hematocrit 36.9 % (36-46); Hemoglobin 12.3 g/dL (12.0-16.0); Lymphocytes Absolute Auto 1700 /uL (1100-4500); Lymphocytes Percent Auto 26.3 % (25-40); Mean Corpuscular HGB Conc 33.3 % (30-36); Mean Corpuscular Hemoglobin 30.5 PG (26-34); Mean Corpuscular Volume 91.5 fL (80-100); Monocytes Absolute Auto 600 /uL (0-900); Monocytes Percent Auto 9.7 % (3-14); Neutrophils Absolute Auto 3900 /uL (1500-7000); Neutrophils Percent Auto 60.7 % (50-75); Platelet Count 149 X10^3/uL (150-400); Red Blood Cell Count 4.03 X10^6/uL (4.0-5.2); Red Cell Distribution Width 14.6 % (11.6-14.8); White Blood Cell Count 6.5 X10^3/uL (4.5-11.0)
[2021-11-12 14:01] LABS: Blood Urea Nitrogen 18 mg/dL (7-17); Calcium 9.8 mg/dL (8.4-10.2); Carbon Dioxide 31 mmol/L (22-32); Chloride 103 mmol/L (98-107); Estimated Glomerular Filt Rate 52.6 mL/min (>60); Glucose 83 mg/dL (80-110); HEMOLYSIS < 15 (0-50); Magnesium 1.8 mg/dL (1.6-2.3); Potassium 3.7 mmol/L (3.4-5.1); Sodium 140 mmol/L (137-145)
[2021-11-12 14:03] LABS: Digoxin 0.4 ng/mL (0.8-2.0)
[2021-11-12 14:31] LABS: Thyroid Stimulating Hormone 2.28 uIU/mL (0.47-4.68)
== END ==
PROVIDERS: PCP Nurse Practitioner; Referring Provider Internal Medicine Cardiovascular Disease; Visit Provider Internal Medicine Cardiovascular Disease
DX: I10 Essential (primary) hypertension (principal); I47.1 Supraventricular tachycardia; R00.2 Palpitations
CPT/HCPCS: 36415; 80048; 80162; 83735; 84443; 85025

== ENCOUNTER → 2021-12-17 08:05 | Outpatient (CLI) | payer MEDICARE, OTHER, SELFPAY ==
--- NOTE | 2021-12-17 | DI.ECHO.S_ITS ---
[facility] +---------+ : : [address] [place] [address] : : : : [phone] : : : : Phone: [phone]+ Echocardiogram Report + + :Name: JEFF ROSE I Study Date: 12/17/2021 Height: 61 in : :[facility] ReadingLocation: Weight: 125 lb : : Gender: Female BSA: 1.5 m2 : :: 1935 Age: 86 yrs BP: 134/62 mmHg: :Reason For Study: CARDIAC ARRHYTHMIA : :Ordering Physician: LISETH, : :KASHIF Performed By: Kristel Murrieta : :Referring: KASHIF CHILDERS : + + Interpretation Summary The left ventricle is normal in size. The ejection fraction is estimated to be 60-65%. The right ventricle is normal size. Visually RV function appears to be preserved. There is mild to moderate tricuspid regurgitation. Compared to the prior echo exam, there has been no change in TR severity. The right ventricular systolic pressure is estimated to be at least 27 mmHg based on an estimated right atrial pressure of 3 mm Hg. Moderate atherosclerotic plaque(s) in the aortic arch. Procedure: A two-dimensional transthoracic echocardiogram with color flow and Doppler was performed. The study quality was technically good. Comparison is made with the echocardiogram of 10/13/2013. The patient was in sinus bradycardia with heart rates between 41-50 bpm during the exam. Left Ventricle: Proximal septal thickening is noted. The left ventricle is normal in size. There is no echo evidence for significant left ventricular outflow tract obstruction. There is no thrombus. The ejection fraction is estimated to be 60-65%. There are no focal wall motion abnormalities. MV E/A: 1.4 Med Peak E' Carloz: 6.6 cm/sec E/E' med: 13.9. Right Ventricle: The right ventricle is normal size. Visually RV function appears to be preserved. Atria: The left atrium is moderately dilated. There has been no significant change since the previous study. The right atrium is borderline dilated. There is no Doppler evidence for an interatrial shunt. Mitral Valve: The mitral valve leaflets appear mildly thickened, but open well. There is mild mitral annular calcification. There is trace mitral regurgitation. Aortic Valve: There is mild aortic valve sclerosis. The aortic valve is trileaflet. The aortic valve is mildly calcified. The aortic valve opens well. There is no aortic valve stenosis. There is trace aortic regurgitation. Tricuspid Valve: The tricuspid valve leaflets are thin and pliable. There is mild to moderate tricuspid regurgitation. The right ventricular systolic pressure is estimated to be at least 27 mmHg based on an estimated right atrial pressure of 3 mm Hg. Compared to the prior echo exam, there has been no change in TR severity. Pulmonic Valve: The pulmonic valve leaflets are thin and pliable; valve motion is normal. There is trace pulmonic regurgitation. Great Vessels: The aortic root is normal size. The dimensions of the ascending aorta are normal. Moderate atherosclerotic plaque(s) in the aortic arch. The IVC is of normal diameter and collapses greater than 50% with a sniff. This suggests a low right atrial pressure of 3 mm Hg. Pericardium/ Pleura There is no pericardial effusion. There is no pleural effusion. MMode/2D Measurements & Calculations LVIDd: 4.6 cm LVOT diam: 2.0 cm LVIDs: 2.8 cm Ao root diam: 2.8 cm FS: 40.0 % asc Aorta Diam: 3.2 cm IVSd: 0.73 cm Ao Arch Diam (Prox Trans): 2.5 cm LVPWd: 0.82 cm LV agarwal. diameter/BSA (cm/m^2): 3.0 LV sys. diameter/BSA (cm/m^2): 1.8 LA A2 area: 22.4 cm2 RA long axis: 5.0 cm LA A4 area: 21.8 cm2 RA area: 17.6 cm2 LA length (vol): 5.8 cm RA vol: 52.4 ml LA vol: 71.0 ml RA : 33.9 ml/m2 LA vol index: 45.9 ml/m2 IVC diam: 1.3 cm RVD1 (basal): 3.5 cm RVD2 (mid): 2.8 cm TAPSE: 1.5 cm Doppler Measurements & Calculations Ao V2 max: 194.0 cm/sec LVOT Max Carloz: 94.5 cm/sec Ao V2 mean: 137.1 cm/sec LV V1 max P.6 mmHg Ao max P.1 mmHg LV V1 VTI: 23.3 cm Ao mean P.6 mmHg ANA(I,D): 1.4 cm2 Ao V2 VTI: 50.4 cm ANA(V,D): 1.5 cm2 sev ratio: 0.46 ANA indexed to BSA (cm^2/m^2): 0.90 MV E max carloz: 91.5 cm/sec TR max carloz: 218.9 cm/sec MV A max carloz: 64.6 cm/sec TR max P.4 mmHg MV E/A: 1.4 PA V2 max: 112.0 cm/sec Med Peak E' Carloz: 6.6 cm/sec PA V2 mean: 76.5 cm/sec E/E' med: 13.9 PA mean P.7 mmHg Lat Peak E' Carloz: 10.3 cm/sec PA pr(Accel): 20.8 mmHg E/E' lat: 8.9 E/e' average: 11.4 MV dec time: 0.23 sec SV(LVOT): 70.4 ml Reading Physician:01:05 PM
== END ==
PROVIDERS: PCP Nurse Practitioner; Referring Provider Internal Medicine Cardiovascular Disease; Visit Provider Internal Medicine Cardiovascular Disease
DX: I08.2 Rheumatic disorders of both aortic and tricuspid valves (principal); I70.0 Atherosclerosis of aorta; I47.1 Supraventricular tachycardia
CPT/HCPCS: 93306

== ENCOUNTER → 2022-01-16 11:32 | Outpatient (CLI) | payer MEDICARE, OTHER, SELFPAY ==
--- NOTE | 2022-01-16 | DI.MG.S_ITS ---
BILATERAL DIGITAL SCREENING MAMMOGRAM 3D/2D WITH CAD: 01/16/2022 CLINICAL: Routine screening. Family history of breast cancer. Comparison is made to exams dated: 01/09/2021 mammogram, 01/06/2020 mammogram, and 01/04/2019 mammogram - [facility]. There are scattered fibroglandular elements in both breasts. Current study was also evaluated with a Computer Aided Detection (CAD) system. No significant masses, calcifications, or other findings are seen in either breast. There has been no significant interval change. IMPRESSION: NEGATIVE There is no mammographic evidence of malignancy. A 1 year screening mammogram is recommended. This exam was interpreted at Station ID: [id number]. NOTE: For mammograms, a report in lay terms will be sent to the patient. Approximately 15% of breast malignancies will not be visualized mammographically. In the management of a palpable breast mass, a negative mammogram must not discourage biopsy of a clinically suspicious lesion. Electronically Signed By: Telly gastelum/portia:01/16/2022 12:21:55 copy to: JESUSITA DE SANTIAGO letter sent: Normal Exam ACR BI-RADS Category 1: Negative 3341F
== END ==
PROVIDERS: PCP Nurse Practitioner; Referring Provider Nurse Practitioner; Visit Provider Nurse Practitioner
DX: Z12.31 Encounter for screening mammogram for malignant neoplasm of breast (principal)
CPT/HCPCS: 77063; 77067

== ENCOUNTER → 2022-02-18 08:25 | Outpatient (CLI) | payer MEDICARE, OTHER, SELFPAY ==
[2022-02-18 10:48] LABS: Thyroid Stimulating Hormone 4.89 uIU/mL (0.47-4.68)
== END ==
PROVIDERS: PCP Nurse Practitioner; Referring Provider Internal Medicine Cardiovascular Disease; Visit Provider Internal Medicine Cardiovascular Disease
DX: E03.9 Hypothyroidism, unspecified (principal); Z79.899 Other long term (current) drug therapy; Z51.81 Encounter for therapeutic drug level monitoring
CPT/HCPCS: 36415; 80162; 84443

== ENCOUNTER → 2022-04-23 09:39 | Outpatient (CLI) | payer MEDICARE, OTHER, SELFPAY ==
[2022-04-23 10:50] LABS: COVID19 -Nasal RAPID Negative (Negative)
--- NOTE | 2022-04-23 19:09 | DI.NM.S_ITS ---
DATE OF SERVICE: 04/23/2022 PROCEDURE: Exercise perfusion study. INDICATION: SVT, palpitation. RADIOPHARMACEUTICAL: 24.5 millicurie technetium-99m Myoview IV was injected at stress and 12.1 millicurie technetium-99m Myoview IV was injected at rest. CARDIAC STRESS: The patient underwent exercise perfusion study under the supervision of an attending staff using standard Andrew protocol. She walked on Andrew protocol for 6 minutes and achieved 84 percent of target heart rate. Normal blood pressure response. Baseline blood pressure 142/76 mmHg. Peak blood pressure 184/84 mmHg. The patient achieved 7 METs of workload. RENALDO -45 percent. [place] fatigue. No chest pain. Baseline rhythm was sinus with some nonspecific ST changes. During stress, there were some nonspecific ST changes without any concerning significant inducible ischemic changes. Intermittent PACs and occasional PVCs seen. In recovery, three-beat run of nonsustained ventricular tachycardia. No obvious atrial fibrillation. RAW DATA: There is adequate myocardial uptake. GATED STUDY: Resting LV ejection fraction 71 and stress LV ejection fraction 78 percent. No obvious wall motion abnormalities. Resting end-diastolic volume 93 mL. TID ratio 0.76, which is within normal limits. Lung/heart ratio 0.41, which is within normal limits. MYOCARDIAL PERFUSION SCAN: Stress supine, resting supine and stress prone images were compared to each other. Stress supine and resting supine images revealed a small size, minimally decreased perfusion of distal anterior wall, which got completely resolved during stress prone images, suggestive of breast tissue attenuation artifact. No convincing ischemia or infarction. CONCLUSION: I will call this study likely a normal myocardial perfusion study with evidence of some breast tissue attenuation artifact, which got resolved during prone images. Preserved left ventricular function. Some premature atrial contractions and premature ventricular contractions and three-beat run of SVT during exercise and recovery without any complex arrhythmias. No anginal symptoms. RENALDO -45 percent. Normal hemodynamic response. Overall low-risk exercise myocardial perfusion scan. The patient had a perfusion scan study in October,, at that time she was able to walk on Andrew protocol for 7 minutes. There was also evidence of breast tissue attenuation artifact. Shannon Myers - Rosalba doc#: [id number]/job#: [id number] dd: 04/23/2022 16:48:00 dt: 04/23/2022 17:55:00 DICTATING MD/COPIES TO: Darrick Madera MD COPIES MNE: RACHELLE;
== END ==
PROVIDERS: PCP Nurse Practitioner; Referring Provider Internal Medicine Cardiovascular Disease; Visit Provider Internal Medicine Cardiovascular Disease
DX: I47.1 Supraventricular tachycardia (principal); I49.1 Atrial premature depolarization; I49.3 Ventricular premature depolarization
CPT/HCPCS: 78452; 87635; 93017; A9502

== ENCOUNTER → 2022-06-06 09:28 | Outpatient (CLI) | payer MEDICARE, OTHER, SELFPAY ==
[2022-06-06 12:13] LABS: Thyroid Stimulating Hormone 6.09 uIU/mL (0.47-4.68)
== END ==
PROVIDERS: PCP Nurse Practitioner; Referring Provider Nurse Practitioner; Visit Provider Nurse Practitioner
DX: E03.9 Hypothyroidism, unspecified (principal)
CPT/HCPCS: 36415; 84443

== ENCOUNTER → 2022-08-08 10:11 | Outpatient (CLI) | payer MEDICARE, OTHER, SELFPAY ==
[2022-08-08 12:25] LABS: BUN Creatinine Ratio 18.8 (6-22); Blood Urea Nitrogen 18 mg/dL (7-17); Calcium 9.4 mg/dL (8.4-10.2); Carbon Dioxide 30 mmol/L (22-32); Chloride 103 mmol/L (98-107); Estimated Glomerular Filt Rate 57 mL/min (>60); Glucose 55 mg/dL (80-110); HEMOLYSIS < 15 (0-50); Potassium 4.5 mmol/L (3.4-5.1); Sodium 138 mmol/L (137-145)
== END ==
PROVIDERS: PCP Nurse Practitioner; Referring Provider Internal Medicine Cardiovascular Disease; Visit Provider Internal Medicine Cardiovascular Disease
DX: I47.1 Supraventricular tachycardia (principal)
CPT/HCPCS: 36415; 80048

== ENCOUNTER → 2022-11-05 13:36 | Outpatient (CLI) | payer MEDICARE, OTHER, SELFPAY ==
[2022-11-05 15:19] LABS: Add Manual Diff / Slide Review NO; Basophils Absolute Auto 100 /uL (0-100); Basophils Percent Auto 1.4 % (0-2); Eosinophils Absolute Auto 200 /uL (0-450); Eosinophils Percent Auto 3.2 % (2-4); Hemoglobin 11.8 g/dL (12.0-16.0); Lymphocytes Absolute Auto 1500 /uL (1100-4500); Mean Corpuscular HGB Conc 33.6 % (30-36); Mean Corpuscular Hemoglobin 29.9 PG (26-34); Mean Corpuscular Volume 88.9 fL (80-100); Monocytes Absolute Auto 600 /uL (0-900); Neutrophils Absolute Auto 3400 /uL (1500-7000); Neutrophils Percent Auto 59.4 % (50-75); Platelet Count 139 X10^3/uL (150-400); Red Blood Cell Count 3.93 X10^6/uL (4.0-5.2); Red Cell Distribution Width 14.3 % (11.6-14.8); White Blood Cell Count 5.8 X10^3/uL (4.5-11.0)
[2022-11-05 15:23] LABS: Digoxin 0.8 ng/mL (0.8-2.0)
[2022-11-05 15:27] LABS: Alanine Aminotransferase 18 IU/L (<35); Albumin 3.7 g/dL (3.5-5.0); Albumin Globulin Ratio 1.3 (1.0-2.8); Alkaline Phosphatase 58 U/L (38-126); Aspartate Aminotransferase 30 IU/L (14-36); BUN Creatinine Ratio 29.3 (6-22); Bilirubin Total 0.4 mg/dL (0.2-1.3); Blood Urea Nitrogen 24 mg/dL (7-17); Calcium 9.2 mg/dL (8.4-10.2); Carbon Dioxide 28 mmol/L (22-32); Chloride 102 mmol/L (98-107); Estimated Glomerular Filt Rate > 60 mL/min (>60); Globulin 2.9 g/dL (1.7-4.1); Glucose 77 mg/dL (80-110); HEMOLYSIS < 15 (0-50); Magnesium 1.9 mg/dL (1.6-2.3); Potassium 4.3 mmol/L (3.4-5.1); Sodium 137 mmol/L (137-145); Total Protein 6.6 g/dL (6.3-8.2)
[2022-11-05 15:51] LABS: Thyroid Stimulating Hormone 2.72 uIU/mL (0.47-4.68)
== END ==
PROVIDERS: PCP Nurse Practitioner; Referring Provider Nurse Practitioner; Visit Provider Nurse Practitioner
DX: E03.9 Hypothyroidism, unspecified (principal); Z79.899 Other long term (current) drug therapy; G47.62 Sleep related leg cramps; I48.91 Unspecified atrial fibrillation
CPT/HCPCS: 36415; 80053; 80162; 83735; 84443; 85025

== ENCOUNTER → 2023-01-20 10:54 | Outpatient (CLI) | payer MEDICARE, OTHER, SELFPAY ==
--- NOTE | 2023-01-20 10:56 | DI.MG.S_ITS ---
BILATERAL DIGITAL SCREENING MAMMOGRAM 3D/2D WITH CAD: 01/20/2023 CLINICAL: Routine screening. Family history of breast cancer. Comparison is made to exams dated: 01/16/2022 mammogram, 01/09/2021 mammogram, and 01/06/2020 mammogram - [facility]. There are scattered areas of fibroglandular density in both breasts (category b / 25%-50% glandular tissue). Current study was also evaluated with a Computer Aided Detection (CAD) system. There is a possible new 0.5 cm oval equal density asymmetry in the right breast posterior depth lateral region seen on the craniocaudal view only. No other significant masses, calcifications, or other findings are seen in either breast. IMPRESSION: INCOMPLETE: NEEDS ADDITIONAL IMAGING EVALUATION The possible new 0.5 cm oval equal density asymmetry in the right breast is indeterminate. Additional views with possible ultrasound are recommended. This exam was interpreted at Station ID: [id number]. NOTE: For mammograms, a report in lay terms will be sent to the patient. Approximately 15% of breast malignancies will not be visualized mammographically. In the management of a palpable breast mass, a negative mammogram must not discourage biopsy of a clinically suspicious lesion. Electronically Signed By: Devan mcmanus/portia:01/20/2023 16:28:52 copy to: JESUSITA DE SANTIAGO letter sent: Additional Imaging Needed ACR BI-RADS Category 0: Incomplete 3340F
== END ==
PROVIDERS: PCP Nurse Practitioner; Referring Provider Nurse Practitioner; Visit Provider Nurse Practitioner
DX: Z12.31 Encounter for screening mammogram for malignant neoplasm of breast (principal); Z80.3 Family history of malignant neoplasm of breast
CPT/HCPCS: 77063; 77067

== ENCOUNTER → 2023-02-04 13:22 | Outpatient (CLI) | payer MEDICARE, OTHER, SELFPAY ==
[2023-02-04 21:07] LABS: Digoxin 0.8 ng/mL (0.8-2.0)
== END ==
PROVIDERS: PCP Nurse Practitioner; Referring Provider Nurse Practitioner; Visit Provider Nurse Practitioner
DX: R25.2 Cramp and spasm (principal); I48.91 Unspecified atrial fibrillation; R79.0 Abnormal level of blood mineral; R00.1 Bradycardia, unspecified
CPT/HCPCS: 36415; 80162; 83735

== ENCOUNTER → 2023-02-11 10:03 | Outpatient (CLI) | payer MEDICARE, OTHER, SELFPAY ==
--- NOTE | 2023-02-11 10:05 | DI.US.S_ITS ---
ULTRASOUND OF RIGHT BREAST: 02/11/2023 CLINICAL: Patient returns today to evaluate a focal asymmetry in the right breast. Comparison is made to exams dated: 02/11/2023 mammogram, 01/20/2023 mammogram, 01/16/2022 mammogram, and 01/09/2021 mammogram - [facility]. Ultrasound of the right breast was performed on the area of interest. Sandoval scale images of the real-time examination were reviewed. IMPRESSION: PROBABLY BENIGN There is no sonographic abnormality seen in the right breast to correspond with the mammographic asymmetry. A follow-up mammogram and possible ultrasound in 6 months is recommended to demonstrate stability. This exam was interpreted at Station ID: [id number]. Electronically Signed By: Nereyda Douglass M.D. lk/:02/11/2023 10:46:14 copy to: JESUSITA DE SANTIAGO letter sent: Followup Recommended Ultrasound BI-RADS: 3 Probably benign
--- NOTE | 2023-02-11 10:05 | DI.MG.S_ITS ---
UNILATERAL RIGHT DIGITAL DIAGNOSTIC MAMMOGRAM 3D/2D WITH ADDITIONAL VIEWS: 02/11/2023 CLINICAL: Additional evaluation requested from prior study. Comparison is made to exams dated: 01/20/2023 mammogram, 01/16/2022 mammogram, and 01/09/2021 mammogram - [facility]. There are scattered areas of fibroglandular density in the right breast (category b / 25%-50% glandular tissue). The new 0.5 cm oval equal density asymmetry in the right breast posterior depth lateral region seen on the craniocaudal view only is seen in additional views. No other significant masses or calcifications are seen in the breast. IMPRESSION: INCOMPLETE: NEEDS ADDITIONAL IMAGING EVALUATION The oval equal density asymmetry in the right breast is indeterminate. A targeted ultrasound of the right breast is recommended and will be performed immediately following this exam. This exam was interpreted at Station ID: [id number]. NOTE: For mammograms, a report in lay terms will be sent to the patient. Approximately 15% of breast malignancies will not be visualized mammographically. In the management of a palpable breast mass, a negative mammogram must not discourage biopsy of a clinically suspicious lesion. Electronically Signed By: Nereyda Douglass M.D. lk/:02/11/2023 10:27:04 copy to: JESUSITA FRIEDMAN BI-RADS Category 0: Incomplete [id number]
== END ==
PROVIDERS: PCP Nurse Practitioner; Referring Provider Nurse Practitioner; Visit Provider Nurse Practitioner
DX: R92.8 Other abnormal and inconclusive findings on diagnostic imaging of breast (principal); N64.89 Other specified disorders of breast
CPT/HCPCS: 76642; 77065; G0279

== ENCOUNTER → 2023-05-04 12:48 | Outpatient (CLI) | payer MEDICARE, OTHER, SELFPAY ==
[2023-05-04 13:18] LABS: Add Manual Diff / Slide Review NO; Basophils Absolute Auto 100 /uL (0-100); Basophils Percent Auto 0.9 % (0-2); Eosinophils Absolute Auto 100 /uL (0-450); Eosinophils Percent Auto 1.5 % (2-4); Hematocrit 35.4 % (36-46); Hemoglobin 11.8 g/dL (12.0-16.0); Lymphocytes Absolute Auto 1800 /uL (1100-4500); Lymphocytes Percent Auto 21.4 % (25-40); Mean Corpuscular HGB Conc 33.5 % (30-36); Mean Corpuscular Hemoglobin 29.6 PG (26-34); Mean Corpuscular Volume 88.5 fL (80-100); Monocytes Absolute Auto 700 /uL (0-900); Monocytes Percent Auto 8.5 % (3-14); Neutrophils Absolute Auto 5700 /uL (1500-7000); Neutrophils Percent Auto 67.7 % (50-75); Platelet Count 157 X10^3/uL (150-400); Red Cell Distribution Width 15.6 % (11.6-14.8); White Blood Cell Count 8.4 X10^3/uL (4.5-11.0)
[2023-05-04 13:33] LABS: Alanine Aminotransferase 21 IU/L (<35); Albumin 3.9 g/dL (3.5-5.0); Albumin Globulin Ratio 1.2 (1.0-2.8); Alkaline Phosphatase 70 U/L (38-126); Aspartate Aminotransferase 35 IU/L (14-36); BUN Creatinine Ratio 27.8 (6-22); Bilirubin Total 0.4 mg/dL (0.2-1.3); Blood Urea Nitrogen 27 mg/dL (7-17); Calcium 9.5 mg/dL (8.4-10.2); Carbon Dioxide 32 mmol/L (22-32); Chloride 101 mmol/L (98-107); Cholesterol 167 mg/dL (140-199); Estimated Glomerular Filt Rate 56 mL/min (>60); Globulin 3.3 g/dL (1.7-4.1); Glucose 86 mg/dL (80-110); HDL Cholesterol 64 mg/dL (40-60); HEMOLYSIS < 15 (0-50); LDL Cholesterol Calculated 88 mg/dL (<100); Potassium 4.2 mmol/L (3.4-5.1); Sodium 136 mmol/L (137-145); Total Protein 7.2 g/dL (6.3-8.2); Triglycerides 77 mg/dL (35-150)
[2023-05-04 13:34] LABS: Alanine Aminotransferase 22 IU/L (<35); Albumin Globulin Ratio 1.2 (1.0-2.8); Alkaline Phosphatase 69 U/L (38-126); Aspartate Aminotransferase 35 IU/L (14-36); BUN Creatinine Ratio 28.1 (6-22); Bilirubin Total 0.5 mg/dL (0.2-1.3); Blood Urea Nitrogen 27 mg/dL (7-17); Calcium 9.2 mg/dL (8.4-10.2); Carbon Dioxide 32 mmol/L (22-32); Chloride 101 mmol/L (98-107); Estimated Glomerular Filt Rate 57 mL/min (>60); Globulin 3.3 g/dL (1.7-4.1); Glucose 87 mg/dL (80-110); HEMOLYSIS < 15 (0-50); Potassium 4.3 mmol/L (3.4-5.1); Sodium 137 mmol/L (137-145); Total Protein 7.3 g/dL (6.3-8.2)
[2023-05-04 14:03] LABS: Cancer Antigen 125 7.8 U/mL (0-35)
[2023-05-04 14:07] LABS: Thyroid Stimulating Hormone 3.28 uIU/mL (0.47-4.68)
[2023-05-04 15:44] LABS: Microalbumin Urine Random 1.4 mg/dL (0-1.6)
[2023-05-04 15:48] LABS: Creatinine Urine Random 95.4 mg/dL; Microalbumi Creatinin Ratio Ur 14.6 ug/mg CR (<30)
== END ==
PROVIDERS: Internal Medicine Hematology & Oncology; PCP Nurse Practitioner; Referring Provider Nurse Practitioner; Visit Provider Nurse Practitioner
DX: C54.9 Malignant neoplasm of corpus uteri, unspecified; E03.9 Hypothyroidism, unspecified; G47.00 Insomnia, unspecified; I48.91 Unspecified atrial fibrillation; Z79.899 Other long term (current) drug therapy
CPT/HCPCS: 36415; 80053; 80061; 82043; 82570; 84443; 85025; 86304

== ENCOUNTER → 2023-12-02 12:03 | Outpatient (CLI) | payer MEDICARE, OTHER, SELFPAY ==
[2023-12-02 13:05] LABS: Thyroid Stimulating Hormone 2.63 uIU/mL (0.47-4.68)
[2023-12-02 19:51] LABS: Alanine Aminotransferase 17 IU/L (<35); Albumin Globulin Ratio 1.1 (1.0-2.8); Alkaline Phosphatase 66 U/L (38-126); Aspartate Aminotransferase 42 IU/L (14-36); BUN Creatinine Ratio 24.4 (6-22); Bilirubin Total 0.7 mg/dL (0.2-1.3); Blood Urea Nitrogen 21 mg/dL (7-17); Calcium 10.2 mg/dL (8.4-10.2); Carbon Dioxide 25 mmol/L (22-32); Chloride 102 mmol/L (98-107); Estimated Glomerular Filt Rate > 60 mL/min (>60); Globulin 3.6 g/dL (1.7-4.1); Glucose 86 mg/dL (80-110); HEMOLYSIS < 15 (0-50); Potassium 4.1 mmol/L (3.4-5.1); Sodium 135 mmol/L (137-145); Total Protein 7.6 g/dL (6.3-8.2)
== END ==
PROVIDERS: PCP Nurse Practitioner; Referring Provider Nurse Practitioner; Visit Provider Nurse Practitioner
DX: E03.9 Hypothyroidism, unspecified (principal); I48.91 Unspecified atrial fibrillation; R63.5 Abnormal weight gain
CPT/HCPCS: 36415; 80053; 84443

== ENCOUNTER → 2024-01-13 10:17 | Outpatient (CLI) | payer MEDICARE, OTHER, SELFPAY ==
--- NOTE | 2024-01-13 10:18 | DI.MG.S_ITS ---
BILATERAL DIGITAL DIAGNOSTIC MAMMOGRAM 3D/2D SHORT-TERM FOLLOW-UP: 01/13/2024 CLINICAL: Patient returns for a 12 month follow up of the right breast, due for bilateral exam. Comparison is made to exams dated: 02/11/2023 mammogram, 01/20/2023 mammogram, 01/16/2022 mammogram, and 02/11/2023 [facility]. There are scattered areas of fibroglandular density in both breasts (category b / 25%-50% glandular tissue). There is an asymmetry in the right breast posterior depth lateral region seen on the craniocaudal view only. This was not seen on the prior ultrasound. No other significant masses, calcifications, or other findings are seen in either breast. IMPRESSION: PROBABLY BENIGN The asymmetry in the right breast is probably benign. A follow-up mammogram in 12 months is recommended to demonstrate long-term stability. Exam findings were conveyed to the patient. This exam was interpreted at Station ID: [id number]. NOTE: For mammograms, a report in lay terms will be sent to the patient. Approximately 15% of breast malignancies will not be visualized mammographically. In the management of a palpable breast mass, a negative mammogram must not discourage biopsy of a clinically suspicious lesion. Electronically Signed By: Santy Flores M.D. slc/:01/13/2024 10:56:09 copy to: JESUSITA DE SANTIAGO letter sent: Followup Recommended ACR BI-RADS Category 3: Probably benign [id number]
== END ==
LOC: MAMMO 10:18
PROVIDERS: PCP Nurse Practitioner; Referring Provider Internal Medicine Hematology & Oncology; Visit Provider Internal Medicine Hematology & Oncology
DX: R92.8 Other abnormal and inconclusive findings on diagnostic imaging of breast (principal); R92.323 Mammographic fibroglandular density, bilateral breasts
CPT/HCPCS: 77066; G0279

== ENCOUNTER → 2024-01-21 11:34 | Outpatient (CLI) | payer MEDICARE, OTHER, SELFPAY | PROVIDERS: PCP Nurse Practitioner; Visit Provider Physician Assistant | DX: R35.0 Frequency of micturition (principal) | CPT/HCPCS: 87086 ==

== ENCOUNTER → 2024-03-29 11:52 | Outpatient (CLI) | payer MEDICARE, OTHER, SELFPAY ==
[2024-03-29 12:56] LABS: Add Manual Diff / Slide Review NO; Basophils Absolute Auto 100 /uL (0-100); Basophils Percent Auto 1.2 % (0-2); Eosinophils Absolute Auto 200 /uL (0-450); Eosinophils Percent Auto 2.7 % (2-4); Hematocrit 35.2 % (36-46); Hemoglobin 11.9 g/dL (12.0-16.0); Lymphocytes Absolute Auto 1900 /uL (1100-4500); Lymphocytes Percent Auto 24.5 % (25-40); Mean Corpuscular HGB Conc 33.8 % (30-36); Mean Corpuscular Hemoglobin 29.4 PG (26-34); Monocytes Absolute Auto 600 /uL (0-900); Monocytes Percent Auto 7.3 % (3-14); Neutrophils Absolute Auto 5000 /uL (1500-7000); Neutrophils Percent Auto 64.3 % (50-75); Platelet Count 175 X10^3/uL (150-400); Red Blood Cell Count 4.05 X10^6/uL (4.0-5.2); Red Cell Distribution Width 15.1 % (11.6-14.8); White Blood Cell Count 7.7 X10^3/uL (4.5-11.0)
[2024-03-29 13:21] LABS: HEMOLYSIS < 15 (0-50); Iron 68 ug/dL (37-170)
[2024-03-29 13:22] LABS: Digoxin < 0.4 ng/mL (0.8-2.0)
[2024-03-29 13:29] LABS: Percent Iron Saturation 18 % (15-50); Total Iron Binding Capacity 378 ug/dL (265-497); Transferrin 289 mg/dL (206-381)
[2024-03-29 13:35] LABS: Alanine Aminotransferase 17 IU/L (<35); Albumin Globulin Ratio 1.3 (1.0-2.8); Alkaline Phosphatase 77 U/L (38-126); Aspartate Aminotransferase 36 IU/L (14-36); BUN Creatinine Ratio 32.6 (6-22); Bilirubin Total 0.5 mg/dL (0.2-1.3); Blood Urea Nitrogen 28 mg/dL (7-17); Calcium 9.6 mg/dL (8.4-10.2); Carbon Dioxide 27 mmol/L (22-32); Chloride 107 mmol/L (98-107); Cholesterol 168 mg/dL (140-199); Estimated Glomerular Filt Rate > 60 mL/min (>60); Glucose 88 mg/dL (80-110); HDL Cholesterol 78 mg/dL (40-60); HEMOLYSIS < 15 (0-50); LDL Cholesterol Calculated 75 mg/dL (<100); Potassium 4.2 mmol/L (3.4-5.1); Sodium 139 mmol/L (137-145); Triglycerides 76 mg/dL (35-150)
[2024-03-29 13:43] LABS: Creatinine Urine Random 59.93 mg/dL
[2024-03-29 13:47] LABS: Microalbumin Urine Random 8.5 mg/dL (0-1.6)
[2024-03-29 13:51] LABS: Thyroid Stimulating Hormone 5.64 uIU/mL (0.47-4.68)
[2024-03-29 14:16] LABS: Vitamin B12 322 pg/mL (239-931)
== END ==
PROVIDERS: PCP Nurse Practitioner; Referring Provider Nurse Practitioner; Visit Provider Nurse Practitioner
DX: E03.9 Hypothyroidism, unspecified (principal); I48.91 Unspecified atrial fibrillation; G47.00 Insomnia, unspecified; D64.9 Anemia, unspecified; T46.0X5A Adverse effect of cardiac-stimulant glycosides and drugs of similar action, initial encounter; Z79.899 Other long term (current) drug therapy
CPT/HCPCS: 36415; 80053; 80061; 80162; 82043; 82570; 82607; 83540; 83550; 84443; 85025

== ENCOUNTER 2024-10-21 12:50 | Emergency (ER) | payer MEDICARE, OTHER, SELFPAY ==
[2024-10-21] VITALS (21 sets, daily range): BP systolic 170–195; BP diastolic 76–107; PULSE 46–67; RESP 14–26; TEMP 36.5–36.9; O2SAT 95–100; BMI 23.8
--- NOTE | 2024-10-21 13:01 | EKG_ITS ---
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
--- NOTE | 2024-10-21 13:06 | DI.RAD.S_ITS ---
PROCEDURE: XR CHEST 1V INDICATIONS: chest pain TECHNIQUE: One view of the chest was acquired. COMPARISON: [facility], CR, XR CHEST 1V, 11/07/2018, 15:17. FINDINGS: Surgical changes and devices: None. Lungs and pleura: Lungs are clear. No pleural effusions or pneumothorax. Mediastinum: Mediastinal contours appear normal. Heart size is normal. Bones and chest wall: No suspicious bony lesions. Overlying soft tissues appear unremarkable. IMPRESSION: No acute cardiopulmonary abnormality is seen. Dictated by: Solitario Blandon M.D. on 10/21/2024 at 13:40 Approved by: Solitario Blandon M.D. on 10/21/2024 at 13:40
[2024-10-21 13:20] LABS: Add Manual Diff / Slide Review NO; Basophils Absolute Auto 100 /uL (0-100); Basophils Percent Auto 0.9 % (0-2); Eosinophils Absolute Auto 100 /uL (0-450); Eosinophils Percent Auto 1.6 % (2-4); Hematocrit 39.2 % (36-46); Lymphocytes Absolute Auto 2600 /uL (1100-4500); Lymphocytes Percent Auto 29.4 % (25-40); Mean Corpuscular Volume 90.9 fL (80-100); Monocytes Absolute Auto 700 /uL (0-900); Monocytes Percent Auto 7.5 % (3-14); Neutrophils Absolute Auto 5300 /uL (1500-7000); Neutrophils Percent Auto 60.6 % (50-75); Platelet Count 154 X10^3/uL (150-400); Red Blood Cell Count 4.31 X10^6/uL (4.0-5.2); Red Cell Distribution Width 14.3 % (11.6-14.8); White Blood Cell Count 8.7 X10^3/uL (4.5-11.0)
[2024-10-21 13:27] LABS: INR 0.9 (0.9-1.3); Prothrombin Time 10.5 SECONDS (9.4-12.5)
[2024-10-21 13:30] LABS: PTT Partial Thromboplastin Tim 32 SECONDS (25.1-36.5)
[2024-10-21 13:32] LABS: Alanine Aminotransferase 23 IU/L (<35); Albumin 4.2 g/dL (3.5-5.0); Albumin Globulin Ratio 1.3 (1.0-2.8); Alkaline Phosphatase 63 U/L (38-126); Aspartate Aminotransferase 41 IU/L (14-36); BUN Creatinine Ratio 33.3 (6-22); Bilirubin Total 0.6 mg/dL (0.2-1.3); Blood Urea Nitrogen 32 mg/dL (7-17); Calcium 10.2 mg/dL (8.4-10.2); Carbon Dioxide 27 mmol/L (22-32); Chloride 104 mmol/L (98-107); Creatine Kinase 65 U/L (30-135); Estimated Glomerular Filt Rate 57 mL/min (>60); Globulin 3.2 g/dL (1.7-4.1); Glucose 88 mg/dL (80-110); HEMOLYSIS 32 (0-50); Lipase 151 U/L (23-300); Potassium 4.2 mmol/L (3.4-5.1); Sodium 138 mmol/L (137-145); Total Protein 7.4 g/dL (6.3-8.2)
[2024-10-21 13:43] LABS: NT-proBNP (BNP-Adult 18+) 554 pg/mL (<450); Troponin I < 0.012 ng/mL (0.01-0.034)
--- NOTE | 2024-10-21 14:20 | ED_ITS ---
HPI - Headache General Chief Complaint: Headache Stated Complaint: chest pain, severe headache, BP 180/102 Time Seen by Provider: 10/21/24 14:20 Mode of arrival: Ambulatory History of Present Illness HPI Narrative: 89-year-old female had complaint of chest pain last night, for which she took single nitroglycerin, chest pain went away after the nitroglycerin, had subsequent headache on top of her head, no trauma, has persisting headache not responsive to Tylenol. She has also had some discomfort to the left trapezius area and left scapula. Related Data Home Medications Medication Instructions Recorded Confirmed aspirin 81 mg tablet,delayed 81 mg PO DAILY 04/04/20 10/07/24 release (Aspir-) sennosides 8.6 mg tablet (senna) See Rx Instructions PO BEDTIME 04/04/20 10/07/24 bisacodyl 5 mg tablet,delayed 5 mg PO BID 05/07/21 10/07/24 release calcium citrate 500mg/mag/zinc 2 tab PO .QD 05/07/21 10/07/24 docusate sodium 100 mg capsule 100 mg PO BID 05/07/21 10/07/24 (Dulcolax Stool Softener (docusate)) melatonin 10 mg capsule 10 mg PO BEDTIME PRN Insomnia 05/07/21 10/07/24 vit C 250 mg-vit E 90 mg-zinc 40 1 tab PO BID 05/07/21 10/07/24 mg-copper 1 pw-idhnud-qirfrg capsule (PreserVision AREDS-2) losartan 25 mg tablet 25 mg PO DAILY 08/20/22 10/07/24 metoprolol succinate 25 mg 12.5 mg PO DAILY 08/20/22 10/07/24 tablet,extended release 24 hr Previous Rx's Medication Instructions Recorded acetaminophen 500 mg capsule 1,000 mg (2 x 500 mg) PO Q6H PRN 05/07/21 sleep #180 caps famotidine 20 mg tablet (Pepcid) 20 mg PO BEDTIME #90 tabs 05/07/21 simvastatin 20 mg tablet (Zocor) 20 mg PO QPM #90 tabs 05/07/21 nitroglycerin 0.4 mg sublingual 0.4 mg sublingual Q5-15M PRN chest 02/04/23 tablet pain #30 tabs lactulose 10 gram/15 mL oral 15 ml PO DAILY constipation #473 mL 12/02/23 solution (Enulose) trazodone 50 mg tablet 25 mg (1/2 x 50 mg) PO BEDTIME PRN 12/02/23 insomnia #45 tabs digoxin 125 mcg (0.125 mg) tablet 125 mcg PO DAILY #0 tabs 12/15/23 (Lanoxin) cetirizine 10 mg tablet (Zyrtec) 10 mg PO DAILY PRN allergy 03/29/24 symptoms #90 tabs guaifenesin 1,200 mg tablet, 1,200 mg PO BID #180 tabs 03/29/24 extended release 12 hr levothyroxine 88 mcg capsule 88 mcg PO DAILY #90 caps 04/07/24 L.acid,gasseri,plant,rham-B.animalis-cran 1 cap PO DAILY #30 caps 07/08/24 5 billion cell-250mg capsule (up4 Probiotics Women's) nitrofurantoin 100 mg PO BID #4 caps 07/08/24 monohydrate/macrocrystals 100 mg capsule (Macrobid) disabled parking #1 ea 10/07/24 losartan 25 mg tablet 25 mg PO DAILY #7 tabs 10/21/24 methocarbamol 500 mg tablet 500 mg PO TID 7 days #21 tabs 10/21/24 Allergies Allergy/AdvReac Type Severity Reaction Status Date / Time No Known Drug Allergies Allergy Verified 10/21/24 13:02 Patient History Medical History 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 Impaired vision Hearing loss Atrial fibrillation Insomnia Other mcc (current) drug therapy Hypothyroidism Fatigue 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) Atypical chest pain Anterior epistaxis Incisional hernia Bilateral inguinal hernia (BIH) Surgical History Status post appendectomy History of third molar tooth extraction Status post vaginal hysterectomy History of repair of hiatal hernia Status post laparoscopic cholecystectomy Social History Smoking Status: Never smoker Smoking Status: Never smoker alcohol intake frequency: holidays/special occasions only Exam Narrative Exam Narrative: GENERAL: Well-developed patient, in mild distress. HEAD: Atraumatic. Normocephalic. EYES: Pupils equal round and reactive. Extraocular motions intact. No scleral icterus. No injection or drainage. ENT: Nose without bleeding, purulent drainage. Throat without erythema, tonsillar hypertrophy or exudate. Airway patent. NECK: Trachea midline. Non tender CARDIOVASCULAR: Regular rate and rhythm without murmurs, gallops, or rubs. RESPIRATORY: Clear to auscultation. Breath sounds equal bilaterally. No wheezes, rales, or rhonchi. GASTROINTESTINAL: Abdomen soft, non-tender, nondistended. EXTREMITIES: Tenderness to the left superior trapezius and left superior rhomboid musculature, she can move both arms easily. BACK: Nontender without deformity or crepitance. No flank tenderness. NEURO: AOx3. Motor functions grossly nonfocal SKIN: No rash or erythema of visible areas Initial Vital Signs Initial Vital Signs: Vital Signs Temperature 97.7 F 10/21/24 12:52 Pulse Rate 60 10/21/24 12:52 Respiratory Rate 14 10/21/24 12:52 Blood Pressure 190/87 H 10/21/24 12:52 Pulse Oximetry 99 10/21/24 12:52 Oxygen Delivery Method Room Air 10/21/24 12:52 Course Orders Ordered: ED Orders 10/21/24 13:03 Digoxin Stat 10/21/24 13:05 Complete Blood Count AUTO DIFF Stat Comprehensive Metabolic Panel Stat Lipase Stat Magnesium Stat NT-proBNP (BNP-Adult 18+) Stat PTT Partial Thromboplastin Dillon Stat Prothrombin Time INR Stat Troponin & CK Cardiac Panel Stat 10/21/24 13:06 XR chest 1V Stat EKG-12 Lead Stat 10/21/24 14:43 EKG-12 Lead Stat 10/21/24 15:18 Troponin I Stat Discontinued Medications Diltiazem HCl (Diltiazem 25 Mg/5 Ml Sdv) 10 mg IV NOW ONE Stop: 10/21/24 14:42 Last Admin: 10/21/24 15:46 Dose: Not Given Documented By: CLAUDIO Diltiazem HCl 125 mg/ Sodium (Chloride) 125 mls @ 5 mls/hr IV TITRATE KEIKO; Protocol Methocarbamol (Methocarbamol 500 Mg Tablet) 500 mg PO NOW ONE Stop: 10/21/24 14:48 Last Admin: 10/21/24 15:19 Dose: 500 mg Documented By: ASA Vital Signs Vital signs: Vital Signs - 8 hr 10/21/24 12:52 10/21/24 12:58 10/21/24 12:59 Temperature 97.7 F Pulse Rate 60 61 67 Respiratory Rate 14 Blood Pressure 190/87 H Pulse Oximetry 99 99 99 Oxygen Delivery Method Room Air 10/21/24 12:59 10/21/24 13:00 10/21/24 13:00 Temperature Pulse Rate 62 Respiratory Rate Blood Pressure 190/87 H 194/90 H Pulse Oximetry 99 Oxygen Delivery Method Room Air 10/21/24 13:30 10/21/24 13:30 10/21/24 14:00 Temperature Pulse Rate 49 L Respiratory Rate 25 H Blood Pressure 185/79 H 195/83 H Pulse Oximetry 98 Oxygen Delivery Method 10/21/24 14:00 10/21/24 14:30 10/21/24 14:31 Temperature Pulse Rate 46 L 53 L 53 L Respiratory Rate 19 Blood Pressure Pulse Oximetry 98 99 98 Oxygen Delivery Method Room Air 10/21/24 14:31 10/21/24 15:00 10/21/24 15:00 Temperature Pulse Rate 66 Respiratory Rate 18 Blood Pressure 184/82 H 187/86 H Pulse Oximetry 98 Oxygen Delivery Method 10/21/24 15:30 10/21/24 15:31 10/21/24 15:31 Temperature Pulse Rate 60 53 L Respiratory Rate 22 19 Blood Pressure 170/76 H Pulse Oximetry 97 98 Oxygen Delivery Method 10/21/24 16:00 10/21/24 16:00 10/21/24 16:30 Temperature Pulse Rate 60 50 L Respiratory Rate 15 24 Blood Pressure 187/79 H Pulse Oximetry 98 99 Oxygen Delivery Method Room Air Room Air 10/21/24 16:30 10/21/24 17:25 10/21/24 17:27 Temperature Pulse Rate 54 L Respiratory Rate Blood Pressure 177/79 H 184/107 H Pulse Oximetry Oxygen Delivery Method 10/21/24 17:27 10/21/24 17:30 10/21/24 17:30 Temperature Pulse Rate 51 L 49 L Respiratory Rate Blood Pressure 192/87 H Pulse Oximetry 97 100 Oxygen Delivery Method 10/21/24 18:00 10/21/24 18:00 10/21/24 18:30 Temperature Pulse Rate 61 50 L Respiratory Rate 25 H 17 Blood Pressure 187/86 H Pulse Oximetry 95 Oxygen Delivery Method 10/21/24 18:31 10/21/24 18:31 10/21/24 18:33 Temperature Pulse Rate 58 L Respiratory Rate 25 H Blood Pressure 195/84 H 174/81 H Pulse Oximetry 96 Oxygen Delivery Method 10/21/24 18:33 10/21/24 18:40 Temperature 98.5 F Pulse Rate 52 L Respiratory Rate 26 H Blood Pressure Pulse Oximetry 99 Oxygen Delivery Method MDM - Headache Lab Data Attestation: I reviewed the patient's lab results. Lab results narrative: White blood cell count 8700, hemoglobin 13, platelets 165329, basic metabolic panel unremarkable. AST slight elevation otherwise LFTs unremarkable. Lipase 151. Troponin negative/unmeasurable. 10/21/24 13:05 10/21/24 13:05 Labs: Lab Results 10/21/24 10/21/24 10/21/24 Range/Units 13:03 13:05 15:18 WBC 8.7 (4.5-11.0) X10^3/uL RBC 4.31 (4.0-5.2) X10^6/uL Hgb 13.0 (12.0-16.0) g/dL Hct 39.2 (36-46) % MCV 90.9 (80-100) fL MCH 30.0 (26-34) PG MCHC 33.0 (30-36) % RDW 14.3 (11.6-14.8) % Plt Count 154 (150-400) X10^3/uL Neut % (Auto) 60.6 (50-75) % Lymph % (Auto) 29.4 (25-40) % Stephenson % (Auto) 7.5 (3-14) % Eos % (Auto) 1.6 L (2-4) % Baso % (Auto) 0.9 (0-2) % Neut # (Auto) 5300 (2222-7393) /uL Lymph # (Auto) 2600 (0958-8663) /uL Stephenson # (Auto) 700 (0-900) /uL Eos # (Auto) 100 (0-450) /uL Baso # (Auto) 100 (0-100) /uL PT 10.5 (9.4-12.5) SECONDS INR 0.9 (0.9-1.3) APTT 32 (25.1-36.5) SECONDS Sodium 138 (137-145) mmol/L Potassium 4.2 (3.4-5.1) mmol/L Chloride 104 (98-107) mmol/L Carbon Dioxide 27 (22-32) mmol/L BUN 32 H (7-17) mg/dL Creatinine 0.96 (0.52-1.04) mg/dL Estimated GFR 57 L (>60) mL/min BUN/Creatinine Ratio 33.3 H (6-22) Glucose 88 (80-110) mg/dL Calcium 10.2 (8.4-10.2) mg/dL Magnesium 2.0 (1.6-2.3) mg/dL Total Bilirubin 0.6 (0.2-1.3) mg/dL AST 41 H (14-36) IU/L ALT 23 (<35) IU/L Alkaline Phosphatase 63 (38-126) U/L Total Creatine Kinase 65 (30-135) U/L Troponin I < 0.012 < 0.012 (0.01-0.034) ng/mL NT-Pro-B Natriuret Pep 554 H (<450) pg/mL Total Protein 7.4 (6.3-8.2) g/dL Albumin 4.2 (3.5-5.0) g/dL Globulin 3.2 (1.7-4.1) g/dL Albumin/Globulin Ratio 1.3 (1.0-2.8) Lipase 151 (23-300) U/L Digoxin 0.8 (0.8-2.0) ng/mL Imaging Data Chest x-ray: Radiologist's Impression: Close Chest X-Ray (Signed) Solitario Blandon - 10/21/24 Launch?Image [address] [address] XRay Report Signed Patient: Shannon Myers I MR#: [id number] : 1935 Acct:[id number] Age/Sex: 89 / F Date of Service: 10/21/24 Loc: ED Accession Number: [id number] Procedure: XR chest 1V Ordering Provider: Jimy Aguirre MD PROCEDURE: XR CHEST 1V INDICATIONS: chest pain TECHNIQUE: One view of the chest was acquired. COMPARISON: [facility], , XR CHEST 1V, 11/07/2018, 15:17. FINDINGS: Surgical changes and devices: None. Lungs and pleura: Lungs are clear. No pleural effusions or pneumothorax. Mediastinum: Mediastinal contours appear normal. Heart size is normal. Bones and chest wall: No suspicious bony lesions. Overlying soft tissues appear unremarkable. IMPRESSION: No acute cardiopulmonary abnormality is seen. Dictated by: Solitario Blandon M.D. on 10/21/2024 at 13:40 Approved by: Solitario Blandon M.D. on 10/21/2024 at 13:40 ECG Data Attestation: I personally reviewed and interpreted this ECG as follows: Interpretation: Sinus bradycardia with rate of 58, no obvious ST segment elevation or depression changes. [place] 132, QRS 80, QTC 402. MDM Narrative Medical decision making narrative: 89-year-old female with history of atrial fibrillation, takes digoxin, had chest pain last night, took nitroglycerin, chest pain resolved, had subsequent headache that has been persisting. No head or neck trauma. However on examination points to her left trapezius, has some tenderness and spasm along the left trapezius and also the left superior rhomboid, consider secondary headache. Trial of muscle relaxant, oral Robaxin. 1445, patient had tachyarrhythmia, appeared to be AFib RVR with rate 160, IV diltiazem bolus and drip initially ordered, however patient subsequently did vagal maneuver, and returned to sinus rhythm. Diltiazem orders canceled. Repeat troponin still pending. Repeat tropoin negative. Headache and trapezius/scapular areas felt better after oral Robaxin, Rx sent for discharge to use if needed. Patient took oral fluids with medication, was ambulatory the bathroom without problems. Further workup as outpatient for now. Home with family. Return precautions discussed Discharge Plan Departure Patient Disposition: Home Clinical Impression: Headache, Chest pain, Spasm of left trapezius muscle, Strain of left rhomboid muscle, Tachycardia, Hypertension Activity Restrictions/Additional Instructions: Chest pain resolved with nitroglycerin last night, subsequent headache. Persisting headache, history of recurrent headaches. On examination you have tenderness to the superior aspect of the left trapezius muscle, also along the superior rhomboid muscle, which might be causing a secondary tension-like headache. While in the emergency department you had a fast heart rate, repeat EKG was attempted but it had resolved with vagal maneuvers that you had done in the past. Continue to take your chronic medications. EKG and blood testing not suggestive of heart attack at this time. Trial of Robaxin muscle relaxant, to see if treatment of the muscle spasm of your trapezius and rhomboids might help resolve your headache. Consider use of Tylenol as needed for headache pain as well. Prescriptions: New methocarbamol 500 mg tablet 500 mg PO TID 7 Days Qty: 21 0RF losartan 25 mg tablet 25 mg PO DAILY Qty: 7 0RF No Action up4 Probiotics Women's 5 billion cell- 250 mg capsule 1 cap PO DAILY Qty: 30 0RF nitrofurantoin monohyd/m-cryst [Macrobid] 100 mg capsule 100 mg PO BID Qty: 4 0RF Rx Instructions: must administer with a meal/food extending 5 day course (DME) disabled parking See Rx Instructions .Route .MEDSUPPLY Qty: 1 0RF Rx Instructions: I find this patient to be medically disabled and qualified for disabled parking as indicated and signed on the and the [facility] disabled parking application for individuals. digoxin [Lanoxin] 125 mcg (0.125 mg) tablet 125 mcg PO DAILY Qty: 0 0RF Rx Instructions: CARDIOLOGY MANAGING THIS PRESCRIPTION levothyroxine 88 mcg capsule 88 mcg PO DAILY Qty: 90 3RF calcium citrate 500mg/mag/zinc 2 tab PO .QD PreserVision AREDS-2 250-90-40-1 mg capsule 1 tab PO BID docusate sodium [Dulcolax Stool Softener (dss)] 100 mg capsule 100 mg PO BID bisacodyl 5 mg tablet,delayed release (DR/EC) 5 mg PO BID melatonin 10 mg capsule 10 mg PO BEDTIME PRN (Reason: Insomnia) Patient Comments: Sleep 3, melatonin 10mg, L-theanine 200mg, 50mg herbal blend simvastatin [Zocor] 20 mg tablet 20 mg PO QPM Qty: 90 3RF Rx Instructions: Take 1 tab daily for elevated cholesterol famotidine [Pepcid] 20 mg tablet 20 mg PO BEDTIME Qty: 90 3RF Rx Instructions: Take 1 tab at bedtime daily for esophageal reflux acetaminophen 500 mg capsule 1,000 mg PO Q6H PRN (Reason: sleep) Qty: 180 3RF Rx Instructions: Take 2 caps at bedtime daily for sleep losartan 25 mg tablet 25 mg PO DAILY metoprolol succinate 25 mg tablet extended release 24 hr 12.5 mg PO DAILY nitroglycerin 0.4 mg tablet, sublingual 0.4 mg sublingual Q5-15M PRN (Reason: chest pain) Qty: 30 3RF Rx Instructions: Take every 5 mins as needed for chest pain, do not exceed 3 doses per episode, call 911 if pain does not go away. cetirizine [Zyrtec] 10 mg tablet 10 mg PO DAILY PRN (Reason: allergy symptoms) Qty: 90 3RF Rx Instructions: Take 1 tab at bedtime daily guaifenesin 1,200 mg tablet extended release 12hr 1,200 mg PO BID Qty: 180 3RF Rx Instructions: Take 1 tab by mouth twice per day for thick secretions at the back of the throat. sennosides [senna] 8.6 mg tablet See Rx Instructions PO BEDTIME Rx Instructions: Take 2-4 tablets daily PO bedtime; trazodone 50 mg tablet 25 mg PO BEDTIME PRN (Reason: insomnia) Qty: 45 3RF lactulose [Enulose] 10 gram/15 mL solution 15 ml PO DAILY Qty: 473 3RF aspirin [Aspir-81] 81 mg tablet,delayed release (DR/EC) 81 mg PO DAILY Referrals: Alis Longoria MD [Primary Care Provider] - Stand Alone Forms: Patient Portal/API/Survey
[2024-10-21 15:00] LABS: Digoxin 0.8 ng/mL (0.8-2.0)
[2024-10-21] MEDS: methocarbamoL 500 MG TABLET PO (15:19)
[2024-10-21 15:55] LABS: Troponin I < 0.012 ng/mL (0.01-0.034)
--- NOTE | 2024-10-21 17:00 | PC.NURSE ---
Pt ambulated around the ER without difficulty. Pt reports headache and upper back pain resolved after Robaxin. Pt tolerated a glass of water.
== END 2024-10-21 18:41 | disposition home or self-care (01) ==
PROVIDERS: Emergency Provider Emergency Medicine; PCP Family Medicine
DX: S29.012A Strain of muscle and tendon of back wall of thorax, initial encounter (principal); M62.838 Other muscle spasm; I10 Essential (primary) hypertension; R07.9 Chest pain, unspecified; R51.9 Headache, unspecified; R00.0 Tachycardia, unspecified; X58.XXXA Exposure to other specified factors, initial encounter
CPT/HCPCS: 36415; 71045; 80053; 80162; 82550; 83690; 83735; 83880; 84484; 85025; 85610; 85730; 93005; 99284

== ENCOUNTER 2024-10-22 23:12 | Emergency (ER) | payer MEDICARE, OTHER, SELFPAY ==
[2024-10-22 23:16] VITALS: BP 119/68; PULSE 104; PULSE 77; RESP 16; TEMP 36.6; O2SAT 95; O2SAT 98; BMI 23.8
--- NOTE | 2024-10-22 23:21 | DI.RAD.S_ITS ---
PROCEDURE: XR CHEST 1V INDICATIONS: chest pain TECHNIQUE: One view of the chest was acquired. COMPARISON: [facility], CR, XR CHEST 1V, 10/21/2024, 13:04. [facility], CR, XR CHEST 1V, 11/07/2018, 15:17. FINDINGS: Surgical changes and devices: None. Lungs and pleura: No dense consolidation or pleural effusions. Low lung volumes. Mediastinum: Left hemidiaphragm eventration and possible hiatal hernia. Normal heart size. Bones and chest wall: Degenerative changes IMPRESSION: No acute radiographic abnormality on this single view study with low lung volumes. Possible hiatal hernia Dictated by: Bismark Rodriguez M.D. on 10/22/2024 at 23:36 Approved by: Bismark Rodriguez M.D. on 10/22/2024 at 23:37
--- NOTE | 2024-10-22 23:26 | EKG_ITS ---
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
[2024-10-22 23:29] LABS: Add Manual Diff / Slide Review NO; Basophils Absolute Auto 100 /uL (0-100); Eosinophils Absolute Auto 100 /uL (0-450); Hematocrit 33.1 % (36-46); Lymphocytes Absolute Auto 1500 /uL (1100-4500); Lymphocytes Percent Auto 22.3 % (25-40); Mean Corpuscular HGB Conc 33.3 % (30-36); Mean Corpuscular Volume 90.1 fL (80-100); Monocytes Absolute Auto 500 /uL (0-900); Monocytes Percent Auto 7.7 % (3-14); Neutrophils Absolute Auto 4500 /uL (1500-7000); Platelet Count 134 X10^3/uL (150-400); Red Blood Cell Count 3.67 X10^6/uL (4.0-5.2); Red Cell Distribution Width 14.3 % (11.6-14.8); White Blood Cell Count 6.7 X10^3/uL (4.5-11.0)
[2024-10-22 23:30] VITALS: BP 118/62; PULSE 99; RESP 19; O2SAT 97
[2024-10-22 23:33] LABS: Prothrombin Time 11.4 SECONDS (9.4-12.5)
[2024-10-22 23:36] LABS: PTT Partial Thromboplastin Tim 26 SECONDS (25.1-36.5)
[2024-10-22 23:37] LABS: Alanine Aminotransferase 20 IU/L (<35); Albumin 3.5 g/dL (3.5-5.0); Albumin Globulin Ratio 1.2 (1.0-2.8); Alkaline Phosphatase 50 U/L (38-126); Aspartate Aminotransferase 33 IU/L (14-36); BUN Creatinine Ratio 60.2 (6-22); Bilirubin Total 0.4 mg/dL (0.2-1.3); Blood Urea Nitrogen 56 mg/dL (7-17); Calcium 10.1 mg/dL (8.4-10.2); Carbon Dioxide 25 mmol/L (22-32); Chloride 101 mmol/L (98-107); Creatine Kinase 79 U/L (30-135); Estimated Glomerular Filt Rate 59 mL/min (>60); Globulin 2.9 g/dL (1.7-4.1); Glucose 136 mg/dL (80-110); HEMOLYSIS < 15 (0-50); Lipase 145 U/L (23-300); Magnesium 1.8 mg/dL (1.6-2.3); Potassium 3.6 mmol/L (3.4-5.1); Sodium 130 mmol/L (137-145); Total Protein 6.4 g/dL (6.3-8.2)
[2024-10-22 23:49] LABS: NT-proBNP (BNP-Adult 18+) 427 pg/mL (<450); Troponin I < 0.012 ng/mL (0.01-0.034)
[2024-10-23] VITALS (8 sets, daily range): BP systolic 146–161; BP diastolic 67–69; PULSE 50–58; RESP 15–21; O2SAT 96–99
--- NOTE | 2024-10-23 00:10 | EKG_ITS ---
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
--- NOTE | 2024-10-23 01:17 | PC.NURSE ---
Pt resting quietly with eyes closed, reps even and not labored. No distress noted at this time. Pt remains connected to cardiac, reps, blood pressure, and pulse ox monitors with alarms on and audible. Call light within reach.
--- NOTE | 2024-10-23 01:24 | ED_ITS ---
HPI - Arrhythmia/Palpitations General Chief Complaint: Arrhythmia/Palpitations Stated Complaint: Rapid heart beat Time Seen by Provider: 10/23/24 01:24 Source: patient and EMS Mode of arrival: EMS History of Present Illness HPI narrative: Patient 89-year-old female history of paroxysmal atrial fibrillation taking digoxin and aspirin presenting today with heart palpitations. He was seen evaluated here on October 21 for chest pain. She says it that time she took nitroglycerin but was found to have AFib with RVR rate in the 160s initially they were going to give diltiazem however she spontaneously converted with vagal maneuver. Ultimately she was discharged. Today she presents with palpitations again in AFib with RVR she again spontaneously converted heart rate was in the 90s. She says that she can normally herself out of AFib by doing vagal maneuvers but she says usually it has not this frequent. She now is feeling better. Reports that she has not had much to eat or drink, she was given losartan and Robaxin discharge. She has been having some neck issue for which he is physical therapy for Related Data Home Medications Medication Instructions Recorded Confirmed aspirin 81 mg tablet,delayed 81 mg PO DAILY 04/04/20 10/07/24 release (Aspir-) sennosides 8.6 mg tablet (senna) See Rx Instructions PO BEDTIME 04/04/20 10/07/24 bisacodyl 5 mg tablet,delayed 5 mg PO BID 05/07/21 10/07/24 release calcium citrate 500mg/mag/zinc 2 tab PO .QD 05/07/21 10/07/24 docusate sodium 100 mg capsule 100 mg PO BID 05/07/21 10/07/24 (Dulcolax Stool Softener (docusate)) melatonin 10 mg capsule 10 mg PO BEDTIME PRN Insomnia 05/07/21 10/07/24 vit C 250 mg-vit E 90 mg-zinc 40 1 tab PO BID 05/07/21 10/07/24 mg-copper 1 kx-lvgvky-syftzq capsule (PreserVision AREDS-2) losartan 25 mg tablet 25 mg PO DAILY 08/20/22 10/07/24 metoprolol succinate 25 mg 12.5 mg PO DAILY 08/20/22 10/07/24 tablet,extended release 24 hr Previous Rx's Medication Instructions Recorded acetaminophen 500 mg capsule 1,000 mg (2 x 500 mg) PO Q6H PRN 05/07/21 sleep #180 caps famotidine 20 mg tablet (Pepcid) 20 mg PO BEDTIME #90 tabs 05/07/21 simvastatin 20 mg tablet (Zocor) 20 mg PO QPM #90 tabs 05/07/21 nitroglycerin 0.4 mg sublingual 0.4 mg sublingual Q5-15M PRN chest 02/04/23 tablet pain #30 tabs lactulose 10 gram/15 mL oral 15 ml PO DAILY constipation #473 mL 12/02/23 solution (Enulose) trazodone 50 mg tablet 25 mg (1/2 x 50 mg) PO BEDTIME PRN 12/02/23 insomnia #45 tabs digoxin 125 mcg (0.125 mg) tablet 125 mcg PO DAILY #0 tabs 12/15/23 (Lanoxin) cetirizine 10 mg tablet (Zyrtec) 10 mg PO DAILY PRN allergy 03/29/24 symptoms #90 tabs guaifenesin 1,200 mg tablet, 1,200 mg PO BID #180 tabs 03/29/24 extended release 12 hr levothyroxine 88 mcg capsule 88 mcg PO DAILY #90 caps 04/07/24 L.acid,gasseri,plant,rham-B.animalis-cran 1 cap PO DAILY #30 caps 07/08/24 5 billion cell-250mg capsule (up4 Probiotics Women's) nitrofurantoin 100 mg PO BID #4 caps 07/08/24 monohydrate/macrocrystals 100 mg capsule (Macrobid) disabled parking #1 ea 10/07/24 losartan 25 mg tablet 25 mg PO DAILY #7 tabs 10/21/24 methocarbamol 500 mg tablet 500 mg PO TID 7 days #21 tabs 10/21/24 Allergies Allergy/AdvReac Type Severity Reaction Status Date / Time No Known Drug Allergies Allergy Verified 10/22/24 23:20 Patient History Medical History 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 Impaired vision Hearing loss Atrial fibrillation Insomnia Other half-way (current) drug therapy Hypothyroidism Fatigue 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) Atypical chest pain Anterior epistaxis Incisional hernia Bilateral inguinal hernia (BIH) Surgical History Status post appendectomy History of third molar tooth extraction Status post vaginal hysterectomy History of repair of hiatal hernia Status post laparoscopic cholecystectomy Social History Smoking Status: Never smoker Smoking Status: Never smoker alcohol intake frequency: holidays/special occasions only Exam Initial Vital Signs Initial Vital Signs: Vital Signs Temperature 98 F 10/22/24 23:16 Pulse Rate 104 H 10/22/24 23:16 Respiratory Rate 16 10/22/24 23:16 Blood Pressure 119/68 10/22/24 23:16 Pulse Oximetry 98 10/22/24 23:16 Oxygen Delivery Method Room Air 10/22/24 23:16 GENERAL: Alert pleasant hard of hearing 89-year-old female and in no acute distress. HEENT: Head atraumatic,EOMI, pupils reactive, face symmetric, moist mucous membranes CARDIOVASCULAR: Regular rate and rhythm without murmurs, rubs or gallops. RESPIRATORY: Breath sounds equal bilaterally, no wheezes rales or rhonchi. ABDOMEN: Soft, nontender. Normoactive bowel sounds all 4 quadrants. No guarding or rebound. EXTREMITIES: Normal range of motion, no clubbing or edema. Neurovascularly intact NEUROLOGICAL: Alert and oriented x4.Normal gait and speech. Cranial nerves II through XII grossly intact. SKIN: Warm, dry, no laceration, no petechiae, no rashes or lesions. Course Orders Ordered: ED Orders 10/22/24 23:19 Complete Blood Count AUTO DIFF Stat Comprehensive Metabolic Panel Stat Lipase Stat Magnesium Stat NT-proBNP (BNP-Adult 18+) Stat PTT Partial Thromboplastin Dillon Stat Prothrombin Time INR Stat Troponin & CK Cardiac Panel Stat 10/22/24 23:21 XR chest 1V Stat EKG-12 Lead Stat 10/23/24 00:05 EKG-12 Lead Stat 10/23/24 01:25 TSH [Thyroid Stimulating Hormone] Stat 10/23/24 01:42 Digoxin Stat 10/23/24 03:55 BMP [Basic Metabolic Panel] Stat Discontinued Medications Acetaminophen (Acetaminophen 325 Mg Tablet) 650 mg PO NOW ONE Stop: 10/23/24 02:09 Last Admin: 10/23/24 02:12 Dose: 650 mg Documented By: LS Sodium Chloride (Normal Saline 0.9%) 1,000 mls @ 1,000 mls/hr IV BOLUS ONE Stop: 10/23/24 02:24 Last Infusion: 10/23/24 03:13 Dose: Infused Documented By: Admin: 10/23/24 01:34 Dose: 1,000 mls/hr Documented By: Vital Signs Vital signs: Vital Signs - 8 hr 10/22/24 23:16 10/22/24 23:16 10/22/24 23:16 Temperature 98 F Pulse Rate 104 H 77 Respiratory Rate 16 Blood Pressure 119/68 119/68 Pulse Oximetry 98 95 Oxygen Delivery Method Room Air 10/22/24 23:30 10/22/24 23:30 10/23/24 00:00 Temperature Pulse Rate 99 H 50 L Respiratory Rate 19 20 Blood Pressure 118/62 Pulse Oximetry 97 96 Oxygen Delivery Method 10/23/24 02:08 10/23/24 02:59 10/23/24 03:00 Temperature Pulse Rate 58 L 50 L Respiratory Rate 21 15 Blood Pressure 153/67 H 146/69 H Pulse Oximetry 99 97 Oxygen Delivery Method Room Air 10/23/24 03:00 10/23/24 03:22 10/23/24 03:30 Temperature Pulse Rate 50 L Respiratory Rate 16 Blood Pressure 161/68 H 159/67 H Pulse Oximetry 97 Oxygen Delivery Method 10/23/24 04:00 10/23/24 04:01 10/23/24 04:01 Temperature Pulse Rate 54 L 50 L Respiratory Rate 18 15 Blood Pressure 156/68 H Pulse Oximetry 98 98 Oxygen Delivery Method MDM - Arrhythmia/Palpitations Lab Data 10/22/24 23:19 10/23/24 03:55 Labs: Lab Results 10/22/24 10/23/24 Range/Units 23:19 03:55 WBC 6.7 (4.5-11.0) X10^3/uL RBC 3.67 L (4.0-5.2) X10^6/uL Hgb 11.0 L (12.0-16.0) g/dL Hct 33.1 L (36-46) % MCV 90.1 (80-100) fL MCH 30.0 (26-34) PG MCHC 33.3 (30-36) % RDW 14.3 (11.6-14.8) % Plt Count 134 L (150-400) X10^3/uL Neut % (Auto) 68.0 (50-75) % Lymph % (Auto) 22.3 L (25-40) % [place] % (Auto) 7.7 (3-14) % Eos % (Auto) 1.0 L (2-4) % Baso % (Auto) 1.0 (0-2) % Neut # (Auto) 4500 (6272-3948) /uL Lymph # (Auto) 1500 (8164-8710) /uL [place] # (Auto) 500 (0-900) /uL Eos # (Auto) 100 (0-450) /uL Baso # (Auto) 100 (0-100) /uL PT 11.4 (9.4-12.5) SECONDS INR 1.0 (0.9-1.3) APTT 26 D (25.1-36.5) SECONDS Sodium 130 L 132 L (137-145) mmol/L Potassium 3.6 4.0 (3.4-5.1) mmol/L Chloride 101 108 H (98-107) mmol/L Carbon Dioxide 25 22 (22-32) mmol/L BUN 56 H 48 H (7-17) mg/dL Creatinine 0.93 0.77 (0.52-1.04) mg/dL Estimated GFR 59 L > 60 (>60) mL/min BUN/Creatinine Ratio 60.2 H 62.3 H (6-22) Glucose 136 H 112 H (80-110) mg/dL Calcium 10.1 8.9 (8.4-10.2) mg/dL Magnesium 1.8 (1.6-2.3) mg/dL Total Bilirubin 0.4 (0.2-1.3) mg/dL AST 33 (14-36) IU/L ALT 20 (<35) IU/L Alkaline Phosphatase 50 (38-126) U/L Total Creatine Kinase 79 (30-135) U/L Troponin I < 0.012 (0.01-0.034) ng/mL NT-Pro-B Natriuret Pep 427 (<450) pg/mL Total Protein 6.4 (6.3-8.2) g/dL Albumin 3.5 (3.5-5.0) g/dL Globulin 2.9 (1.7-4.1) g/dL Albumin/Globulin Ratio 1.2 (1.0-2.8) Lipase 145 (23-300) U/L TSH 3.19 (0.47-4.68) uIU/mL Digoxin 0.8 (0.8-2.0) ng/mL Imaging Data Chest x-ray: Radiologist's Impresson: PROCEDURE: XR CHEST 1V INDICATIONS: chest pain TECHNIQUE: One view of the chest was acquired. COMPARISON: [facility], CR, XR CHEST 1V, 10/21/2024, 13:04. [facility], CR, XR CHEST 1V, 11/07/2018, 15:17. FINDINGS: Surgical changes and devices: None. Lungs and pleura: No dense consolidation or pleural effusions. Low lung volumes. Mediastinum: Left hemidiaphragm eventration and possible hiatal hernia. Normal heart size. Bones and chest wall: Degenerative changes IMPRESSION: No acute radiographic abnormality on this single view study with low lung volumes. Possible hiatal hernia Dictated by: Bismark Rodriguez M.D. on 10/22/2024 at 23:36 ECG Data Attestation: I personally reviewed and interpreted this ECG as follows: Prior ECG tracings: available for review Interpretation: Atrial fibrillation rate [address] changes Repeat EKGs shows a sinus rhythm rate 50 MA interval 166 QRS 94 QTC 368 MDM Narrative Medical decision making narrative: [facility] CC: Palpitations Complicating co-morbidities: Hypertension, atrial fibrillation?? SVT Hypothyroid Medical records reviewed: Previous PCP record and cardiology records Differential considered: Acute coronary syndrome AFib SVT arrhythmia Exam documented above, pertinent findings include: Pleasant awake 89-year-old female appears well extremely hard of hearing Lab Test results independently reviewed as above. Pertinent findings: BUN 56 creatinine 0.93 previously 32/0.96 WBC 6.7 hemoglobin 11.0 hematocrit 33, platelets 134 Sodium 130, potassium 3.6 chloride 101 carbon dioxide 25 BUN 56 creatinine 0.9 glucose 136 Bilirubin 0.4 AST 33 ALT 20 alk-phos 50 Troponin negative Independently reviewed EKG as above atrial fibrillation without ischemia new from previous EKGs repeat shows sinus rhythm Imaging studies independently reviewed: No acute cardiopulmonary process Consultations: 02:22 Dr. Berger on-call cardiology has reviewed cardiology records. She reports that there is no history or evidence of SVT. 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 Multiple ZIO patches including 1 or 2 this year have never showed atrial fibrillation. She has reviewed EKGs from today and agrees that this does look like atrial fibrillation. States that patient is not responding to digoxin metoprolol. Recommends patient stop digoxin start flecainide and start Eliquis at 2.5 mg and stop aspirin. EKGs has been faxed to number. She is making notes so that patient can follow up with Cardiology Treatments: None Re-evaluations: Patient remains in sinus rhythm Discussion: 89-year-old female who does not have a history of AFib but has a history of SVT presents for the 2nd time this week with atrial fibrillation. She was spontaneously converted both times. She was failing digoxin according to cardiology and will start flecainide. Cardiology has [place] does not need any sort of meds in the ED. BUN is noted to be quite elevated 56. Her creatinine is within normal limits. She has not anemic denies any sort of blood loss. Her baseline BUN is 30. She was given a 2 L of fluid. She was never hypotensive. I do not suspect GI bleed as cause of increased BUN creatinine ratio. Discharge Plan Departure Patient Disposition: Home Clinical Impression: Atrial fibrillation, Dehydration Instructions: DI for Atrial Fibrillation Activity Restrictions/Additional Instructions: *You have been diagnosed with atrial fibrillation, dehydration *What to do: Atrial fibrillation is a new diagnosis. Of stroke. It is recommended that you take something stronger than aspirin to help prevent stroke. You also will need to follow-up closely with cardiology Increase fluids, recommend electrolyte fluids such as Pedialyte or Gatorade *Continue to take medications as directed: All of these medications were sent to the DOD by Cardiology Flecainide 50 mg twice a day--> this replaces digoxin--> stop taking digoxin Eliquis 2.5 mg twice a day--> this replaces aspirin--> stop taking aspirin Continue metoprolol *Follow up with your primary care provider in 2-3 days or call [phone] Call cardiology on Thursday to schedule follow-up appointment *Return to ER if you should have increasing palpitations chest pain shortness of or any new, worsening or concerning symptoms Prescriptions: No Action up4 Probiotics Women's 5 billion cell- 250 mg capsule 1 cap PO DAILY Qty: 30 0RF nitrofurantoin monohyd/m-cryst [Macrobid] 100 mg capsule 100 mg PO BID Qty: 4 0RF Rx Instructions: must administer with a meal/food extending 5 day course (DME) disabled parking See Rx Instructions .Route .MEDSUPPLY Qty: 1 0RF Rx Instructions: I find this patient to be medically disabled and qualified for disabled parking as indicated and signed on the and the [employer] disabled parking application for individuals. digoxin [Lanoxin] 125 mcg (0.125 mg) tablet 125 mcg PO DAILY Qty: 0 0RF Rx Instructions: CARDIOLOGY MANAGING THIS PRESCRIPTION levothyroxine 88 mcg capsule 88 mcg PO DAILY Qty: 90 3RF calcium citrate 500mg/mag/zinc 2 tab PO .QD PreserVision AREDS-2 250-90-40-1 mg capsule 1 tab PO BID docusate sodium [Dulcolax Stool Softener (dss)] 100 mg capsule 100 mg PO BID bisacodyl 5 mg tablet,delayed release (DR/EC) 5 mg PO BID melatonin 10 mg capsule 10 mg PO BEDTIME PRN (Reason: Insomnia) Patient Comments: Sleep 3, melatonin 10mg, L-theanine 200mg, 50mg herbal blend simvastatin [Zocor] 20 mg tablet 20 mg PO QPM Qty: 90 3RF Rx Instructions: Take 1 tab daily for elevated cholesterol famotidine [Pepcid] 20 mg tablet 20 mg PO BEDTIME Qty: 90 3RF Rx Instructions: Take 1 tab at bedtime daily for esophageal reflux acetaminophen 500 mg capsule 1,000 mg PO Q6H PRN (Reason: sleep) Qty: 180 3RF Rx Instructions: Take 2 caps at bedtime daily for sleep losartan 25 mg tablet 25 mg PO DAILY metoprolol succinate 25 mg tablet extended release 24 hr 12.5 mg PO DAILY nitroglycerin 0.4 mg tablet, sublingual 0.4 mg sublingual Q5-15M PRN (Reason: chest pain) Qty: 30 3RF Rx Instructions: Take every 5 mins as needed for chest pain, do not exceed 3 doses per episode, call 911 if pain does not go away. cetirizine [Zyrtec] 10 mg tablet 10 mg PO DAILY PRN (Reason: allergy symptoms) Qty: 90 3RF Rx Instructions: Take 1 tab at bedtime daily guaifenesin 1,200 mg tablet extended release 12hr 1,200 mg PO BID Qty: 180 3RF Rx Instructions: Take 1 tab by mouth twice per day for thick secretions at the back of the throat. sennosides [senna] 8.6 mg tablet See Rx Instructions PO BEDTIME Rx Instructions: Take 2-4 tablets daily PO bedtime; trazodone 50 mg tablet 25 mg PO BEDTIME PRN (Reason: insomnia) Qty: 45 3RF lactulose [Enulose] 10 gram/15 mL solution 15 ml PO DAILY Qty: 473 3RF aspirin [Aspir-81] 81 mg tablet,delayed release (DR/EC) 81 mg PO DAILY methocarbamol 500 mg tablet 500 mg PO TID 7 Days Qty: 21 0RF losartan 25 mg tablet 25 mg PO DAILY Qty: 7 0RF Referrals: Alis Longoria MD [Primary Care Provider] - Stand Alone Forms: Patient Portal/API/Survey
[2024-10-23] MEDS: SODIUM CHLORIDE 0.9% 1,000 ML 1000 ML IV (01:34)
[2024-10-23 02:00] LABS: Digoxin 0.8 ng/mL (0.8-2.0)
[2024-10-23] MEDS: ACETAMINOPHEN 325 MG TABLET 650 MG PO (02:12)
[2024-10-23 02:29] LABS: Thyroid Stimulating Hormone 3.19 uIU/mL (0.47-4.68)
[2024-10-23 04:13] LABS: BUN Creatinine Ratio 62.3 (6-22); Blood Urea Nitrogen 48 mg/dL (7-17); Calcium 8.9 mg/dL (8.4-10.2); Carbon Dioxide 22 mmol/L (22-32); Chloride 108 mmol/L (98-107); Estimated Glomerular Filt Rate > 60 mL/min (>60); Glucose 112 mg/dL (80-110); HEMOLYSIS 34 (0-50); Sodium 132 mmol/L (137-145)
== END 2024-10-23 04:49 | disposition home or self-care (01) ==
PROVIDERS: Emergency Provider Emergency Medicine; PCP Family Medicine
DX: I48.91 Unspecified atrial fibrillation (principal); E86.0 Dehydration; Z86.79 Personal history of other diseases of the circulatory system
CPT/HCPCS: 71045; 80048; 80053; 80162; 82550; 83690; 83735; 83880; 84443; 84484; 85025; 85610; 85730; 93005; 96360; 96361; 99284

== ENCOUNTER → 2025-03-16 12:09 | Outpatient (CLI) | payer MEDICARE, OTHER, SELFPAY ==
[2025-03-16 12:55] LABS: Add Manual Diff / Slide Review NO; Basophils Absolute Auto 100 /uL (0-100); Eosinophils Absolute Auto 100 /uL (0-450); Eosinophils Percent Auto 1.6 % (2-4); Hematocrit 32.9 % (36-46); Hemoglobin 10.7 g/dL (12.0-16.0); Lymphocytes Absolute Auto 2100 /uL (1100-4500); Lymphocytes Percent Auto 32.4 % (25-40); Mean Corpuscular HGB Conc 32.6 % (30-36); Mean Corpuscular Volume 82.7 fL (80-100); Monocytes Absolute Auto 500 /uL (0-900); Monocytes Percent Auto 8.4 % (3-14); Neutrophils Absolute Auto 3600 /uL (1500-7000); Neutrophils Percent Auto 56.6 % (50-75); Platelet Count 174 X10^3/uL (150-400); Red Blood Cell Count 3.98 X10^6/uL (4.0-5.2); Red Cell Distribution Width 21.3 % (11.6-14.8); White Blood Cell Count 6.4 X10^3/uL (4.5-11.0)
[2025-03-16 13:18] LABS: Anisocytosis 1+; Platelet Estimate Adequate on smear
== END ==
PROVIDERS: PCP Family Medicine; Referring Provider Family Medicine; Visit Provider Family Medicine
DX: I10 Essential (primary) hypertension (principal)
CPT/HCPCS: 36415; 85025